=== PATIENT | female | born 1970 | race Caucasian/White ===

== ENCOUNTER 2020-11-02 16:58 | Emergency (ER) | payer OTHER, SELFPAY ==
--- NOTE | ~2020-11-02 | XR_ITS ---
EXAMINATION: XR hip LT 2V w AP pelvis DATE: 11/02/2020 17:52 INDICATION: Low back and left hip pain post fall TECHNIQUE: Anteroposterior view of the pelvis and anteroposterior and frog-leg lateral views of the l eft hip were obtained. COMPARISON: CT chest, abdomen and pelvis dated 05/28/2017 FINDINGS: Alignment is normal. No fracture. Mild osteoarthritis at the bilateral hip, sacroiliac and visualized lower lumbar facet joints. A pair of likely tubal ligation clips as well as multiple phleboliths pro ject over the pelvis. IMPRESSION: 1. Mild degenerative skeletal changes. No acute osseous abnormality. Reviewed, dictated and finalized at location A. CATTLE GRAZIER
[2020-11-02 17:18] VITALS: BP 144/87; PULSE 94; RESP 12; TEMP 36.3; O2SAT 100
--- NOTE | 2020-11-02 17:39 | ED.FALL ---
HPI - Fall General Chief Complaint: Fall Stated Complaint: fall Time Seen by Provider: 11/02/20 17:19 Source: patient Mode of arrival: ambulatory Limitations: no limitations History of Present Illness HPI Narrative: Patient is a 50-year-old female complaining of left hip pain accompanied by left low back pain, 6 out of 10, dull, nonradiating after she slipped and fall landing on her left side prior to arrival. Patient denies any head, neck, chest, abdomen or any other extremity pain/injury. Patient ambulatory after the fall. Related Data Allergies Allergy/AdvReac Type Severity Reaction Status Date / Time codeine Allergy Unknown Itching Verified 10/23/19 10:56 tramadol AdvReac Unknown N/V Verified 10/23/19 10:56 Review of Systems Review of Systems: All systems reviewed & are unremarkable except as noted in HPI and below Constitutional: Constitutional: Denies body ache(s), Denies chills, Denies excessive sweating, Denies fatigue, Denies fever(s), Denies headache(s), Denies lethargy, Denies malaise, Denies weakness and Denies weight loss Eyes: Eyes: Denies blurry vision, Denies change in vision and Denies loss of vision ENT: Denies dizziness, Denies ear discharge, Denies headache(s), Denies lip swelling, Denies epistaxis, Denies nasal congestion, Denies neck pain, Denies throat swelling and Denies tongue swelling Cardiovascular: Cardiovascular: Denies chest pain, Denies chest pain at rest, Denies chest pain with activity, Denies diaphoresis, Denies rapid heart rate, Denies edema, Denies irregular heart rhythm, Denies lightheadedness, Denies palpitations, Denies dyspnea and Denies dyspnea on exertion Respiratory: Respiratory: Denies chest congestion, Denies cough, Denies hemoptysis, Denies dyspnea and Denies dyspnea on exertion Gastrointestinal: Gastrointestinal: Denies abdominal pain, Denies melena, Denies hematochezia, Denies diarrhea, Denies nausea, Denies vomiting and Denies hematemesis Musculoskeletal: Musculoskeletal: Denies abnormal gait, Denies deformity, Denies joint swelling, Denies neck pain and Denies numbness Neurologic: Denies Abnormal speech present, Denies abnormal gait, Denies confusion, Denies dizziness, Denies headache(s), Denies focal weakness, Denies loss of vision, Denies numbness, Denies Other visual disturbances, Denies Sensory deficit (Neuro) and Denies weakness Psychiatric: Psychiatric: Denies confusion, Denies depression, Denies auditory hallucinations, Denies homicidal ideation and Denies suicidal ideation Endocrine: Endocrine: Denies cold intolerance, Denies excessive sweating, Denies fatigue, Denies heat intolerance and Denies palpitations Hematologic/Lymphatic: Hematologic/Lymphatic: Denies easy bleeding and Denies easy bruising Allergic/Immunologic: Allergic/Immunologic: Denies lip swelling, Denies throat swelling and Denies tongue swelling PMFSH Past Medical History Medical History Medial epicondylitis Pain of both elbows Family History Family History Other Diabetes mellitus Family history of alcoholism Family history of heart disease in male family member before age 55 Hypertension Social History Social History Smoking status: Former smoker Smoking end date: 09/23/98 Exam Const: General: cooperative, healthy appearing, comfortable, no acute distress, well developed, alert and awake; No confusion Orientation/consciousness: oriented to person, oriented to place, oriented to time, patient oriented x3 and No confusion Limitations: no limitations HENMT: Head: normal to inspection, normocephalic and atraumatic Ears: hearing grossly normal bilaterally, TM normal on the right and TM normal on the left General nose exam: Normal external nose present, Normal nares present and No nasal discharge present Face and sinus: nor
[2020-11-02] MEDS: KETOROLAC 30 MG/ML VIAL (*BKC) IM (18:52)
[2020-11-02 18:55] VITALS: BP 134/86; PULSE 88; RESP 15; O2SAT 100
== END 2020-11-02 18:57 | disposition home or self-care (01) ==
PROVIDERS: Emergency Provider Emergency Medicine; PCP Nurse Practitioner Family
DX: S70.02XA Contusion of left hip, initial encounter (principal); W01.0XXA Fall on same level from slipping, tripping and stumbling without subsequent striking against object, initial encounter
CPT/HCPCS: 73502; 96372; 99283; J1885

== ENCOUNTER 2020-11-26 10:10 | Emergency (ER) | payer OTHER, SELFPAY ==
--- NOTE | ~2020-11-26 | CT_ITS ---
EXAMINATION: CT abdomen pelvis w con EXAM DATE: 11/26/2020 12:08 INDICATION: Diarrhea, abdominal cramping and diverticulitis. TECHNIQUE: Spiral CT of the abdomen and pelvis was performed following intravenous injection of 100 m L Omnipaque 350. Axial, coronal and sagittal images were reviewed. The dose-length product (DLP) fo r this examination was 631.95 mGy-cm. The exposure was tailored according to patient size (auto mA e xposure control), and iterative reconstruction (ASIR) was used as additional dose reduction technique . Comparison is made to prior examination from 05/28/2017. FINDINGS: The liver, spleen, adrenal glands and pancreas are unremarkable. Gallbladder is unremarkab le. No biliary obstruction. Portal and splenic veins are patent. Kidneys enhance symmetrically. T here is no hydronephrosis. The uterus is anteverted and morphologically normal. The bladder is un remarkable. There is no retroperitoneal or pelvic lymphadenopathy. The appendix is normal. There are surgical changes from intact gastric bypass surgery. There is col onic fluid, correlate for diarrhea. There is mild scattered colonic diverticulosis. There is no derrek cent inflammatory change to suggest diverticulitis. No free intraperitoneal gas. The heart is norm al in size. There are no pericardial or pleural effusions. Left lower lobe granuloma. There are no osteoblastic or osteolytic lesions identified. IMPRESSION: 1. Colonic fluid, correlate for diarrhea. 2. Scattered colonic diverticulosis without adjacent inflammation. Reviewed, dictated and finalized at location A. NSING ENGINEER
[2020-11-26 10:14] VITALS: BP 138/91; PULSE 97; RESP 20; TEMP 36.4; O2SAT 100
[2020-11-26 10:18] VITALS: BP 138/91; PULSE 97; RESP 20; TEMP 36.4; O2SAT 100
[2020-11-26] MEDS: SODIUM CHLORIDE 0.9% IV 1,000 ML 999 ML IV CONT (10:42)
[2020-11-26] MEDS: METOCLOPRAMIDE HCL INJ 10 MG/2 ML VIAL IV PUSH (10:42)
[2020-11-26 10:49] VITALS: BP 121/85; BP 136/89; PULSE 70; PULSE 71
[2020-11-26 10:50] VITALS: BP 138/89; PULSE 79
[2020-11-26 10:52] LABS: Basophils Percent Auto 0.4 % (0.2-1.2); Eosinophils Absolute Auto 0.1 K/mm3 (0-0.3); Eosinophils Percent Auto 0.9 % (0-4.4); Hematocrit 46.3 % (37.0-47.0); Hemoglobin 15.5 g/dL (12.0-15.0); Immature Granulocyte Absolute 0.02 K/mm3 (0.00-0.031); Immature Granulocyte Percent A 0.2 % (0-0.5); Immature Platelet Fraction Pct 10.3 % (0.9-11.2); Lymphocytes Absolute Auto 1.25 K/mm3 (0.9-3.2); Lymphocytes Percent Auto 15.3 % (18.3-44.2); Mean Corpuscular HGB Conc 33.5 g/dl (32-36); Mean Corpuscular Hemoglobin 29.9 pg (26-34); Mean Corpuscular Volume 89.4 fl (80-100); Monocytes Absolute Auto 0.5 K/mm3 (0.1-0.6); Monocytes Percent Auto 6.5 % (2.6-8.5); Neutrophils Absolute Auto 6.3 K/mm3 (1.3-6.7); Neutrophils Percent Auto 76.7 % (45.5-73.1); Platelet Count Result 282 k/mm3 (150-375); Red Blood Count 5.18 M/mm3 (4.2-5.4); Red Cell Distribution Width 12.7 % (11.5-14.5); White Blood Count 8.2 K/mm3 (4.5-10.0)
[2020-11-26 11:01] LABS: Large Platelets Present; Platelet Estimate Adequate (Adequate)
[2020-11-26 11:03] LABS: Add Urine Microscopic? YES; Appearance Urine Cloudy (Clear); Bilirubin Urine Negative (Negative); Blood Urine 2+ (Negative); Color Urine Yellow (Yellow); Glucose Urine UA Negative (Negative); Ketones Urine 2+ mg/dL (Negative); Leukocyte Esterase Ur 1+ LEU/UL (Negative); Mucus Urine Heavy /lpf; Nitrate Urine Negative (Negative); Protein Urine 1+ mg/dL (Negative); RBC Urine 0-2 /hpf (0-2); Specific Grav Ur 1.026 (1.001-1.035); Squamous Epithelial Cell Urine Many /hpf (Few); Urobilinogen Urine Negative mg/dL (<2.0)
[2020-11-26 11:26] LABS: Alanine Aminotransferase 14 U/L (4-35); Alkaline Phosphatase 81 U/L (38-126); Anion Gap 9 mmol/L (8-16); Aspartate Amino Transferase 21 U/L (14-36); Bilirubin,Total 0.8 mg/dL (0.2-1.3); Blood Urea Nitrogen 12 mg/dL (7-17); Calcium 8.6 mg/dL (8.4-10.2); Carbon Dioxide 22 mmol/L (22-30); Chloride 108 mmol/L (98-107); Estimated CRCL calculation 100 ml/min; Estimated Glomerular Filt Rate > 60; Glucose 99 mg/dL (65-105); Lipase 213 U/L (23-300); Potassium 3.5 mmol/L (3.4-5.0); Sodium 139 mmol/L (137-145)
--- NOTE | 2020-11-26 11:32 | ED.GENADULT ---
HPI - General Adult General Chief complaint: Nausea/Vomiting/Diarrhea <Robert Michel PA-C - Last Filed: 11/26/20 14:11> Stated complaint: i think i have dehydration <Robert Michel PA-C - Last Filed: 11/26/20 14:11> Time Seen by Provider: 11/26/20 10:14 <Robert Michel PA-C - Last Filed: 11/26/20 14:11> Source: patient <SONDRA Hui Last Filed: 11/26/20 14:11> Mode of arrival: ambulatory <SONDRA Hui Last Filed: 11/26/20 14:11> Limitations: no limitations <SONDRA Hui Last Filed: 11/26/20 14:11> History of Present Illness HPI narrative: Patient with history of anxiety, diverticulitis, and back pain presents with chief complaint for concern of dehydration due to having multiple loose stools over the past 2 to 3 days that began after eating chicken salad that she left her work desk all day prior to eating. Patient reports nausea but denies vomiting. She reports that her stools have been loose but she denies seeing any blood or mucus. She denies fevers. She does report chills. She denies any issues urinating. She reports diffuse cramping to her upper abdomen. Patient reports she has a history of anxiety as well as diverticulitis. She denies any cough, shortness of breath, chest pain, vomiting. She has not taken any medications to alleviate her symptoms. Patient reports over the past few days she has only been able to eat crackers and drink a small amount of fluids, due to lack of appetite. She denies having recent abdominal pain or diarrhea after eating or drinking. Denies any recent travel. <SONDRA Hui Last Filed: 11/26/20 14:11> Related Data Home medications: Home Medications Medication Instructions Recorded Confirmed cyclobenzaprine 5 mg PO HS 11/26/20 11/26/20 lorazepam 1 mg PO BID 11/26/20 11/26/20 <SONDRA Hui Last Filed: 11/26/20 14:11> Allergies/adverse reactions: Allergies Allergy/AdvReac Type Severity Reaction Status Date / Time codeine Allergy Unknown Itching Verified 11/26/20 10:17 tramadol AdvReac Unknown N/V Verified 11/26/20 10:17 <Robert Michel PA-C - Last Filed: 11/26/20 14:11> Review of Systems Review of Systems: Narrative: CONSTITUTIONAL:Reports chills Denies fever or sweats. EYES: Denies visual changes, redness, or discharge. ENT: Denies rhinorrhea, congestion, sore throat, or otalgia. CARDIOVASCULAR: Denies chest pain, palpitations, or edema. RESPIRATORY: Denies cough or dyspnea. GASTROINTESTINAL: Reports abdominal cramping, nausea, and diarrhea Denies vomiting GENITOURINARY: Denies dysuria or hematuria. SKIN: Denies rash or itching. MUSCULOSKELETAL: Denies back pain, joint pain, or myalgia. NEUROLOGIC: Denies headache, numbness, dizziness, or weakness. PSYCHIATRIC: Denies anxiety or depression. <Robert Michel PA-C - Last Filed: 11/26/20 14:11> PMFSH Past Medical History Medical History: Medical History Medial epicondylitis Pain of both elbows <Robert Michel PA-C - Last Filed: 11/26/20 14:11> Family History Family History: Family History Other Diabetes mellitus Family history of alcoholism Family history of heart disease in male family member before age 55 Hypertension <Robert Michel PA-C - Last Filed: 11/26/20 14:11> Social History Social History: Social History Smoking status: Former smoker Smoking end date: 09/23/98 Gender identity (if verbalized by the patient): Female <Robert Michel PA-C - Last Filed: 11/26/20 14:11> Exam Narrative: Exam Narrative: GENERAL: Well-appearing, well-nourished, and in no acute distress. Appears tired but not toxic or diaphoretic. HEAD: Normocephalic, atraumatic. EYES: PERRLA and EOMI. NECK: Supple. No adenopathy or masses. RHEA
[2020-11-26 12:01] VITALS: BP 155/93; PULSE 76; RESP 20; O2SAT 98
[2020-11-26 12:25] VITALS: BP 134/74; PULSE 76; O2SAT 100
== END 2020-11-26 12:25 | disposition home or self-care (01) ==
PROVIDERS: Physician Assistant; Emergency Provider General Practice; PCP Nurse Practitioner Family
DX: R19.7 Diarrhea, unspecified (principal); F41.9 Anxiety disorder, unspecified; Z87.891 Personal history of nicotine dependence
CPT/HCPCS: 36415; 74177; 80053; 81001; 83690; 85025; 85055; 87045; 87046; 87086; 87088; 87427; 96361; 96374; 99284; J2765; J7030; Q9967

== ENCOUNTER 2021-07-21 22:03 | Emergency (ER) | payer OTHER, SELFPAY ==
[2021-07-21 22:07] VITALS: BP 159/95; PULSE 78; RESP 17; TEMP 35.8; O2SAT 100
[2021-07-21] MEDS: SODIUM CHLORIDE 0.9% IV 1,000 ML 999 ML IV CONT (22:38)
[2021-07-21] MEDS: KETOROLAC 30 MG/ML VIAL (*BKC) IV PUSH (22:39)
[2021-07-22] MEDS: diphenhydrAMINE HCl INJ 50 MG/ML VIAL 25 MG IV PUSH (00:42)
[2021-07-22] MEDS: METOCLOPRAMIDE HCL INJ 10 MG/2 ML VIAL IV PUSH (00:42)
--- NOTE | 2021-07-22 00:53 | ED.HA ---
HPI - Headache General Chief Complaint: Headache Stated Complaint: headache Time Seen by Provider: 07/21/21 22:06 History of Present Illness HPI Narrative: Patient is a 50-year-old female who presents ER with headache. Frontal and throbbing. No radiation. Denies fevers or chills or sweats. Endorses photophobia. No improvement with ibuprofen at home. Reports she gets these on occasion. No formal history of migraine. Reports she is under increased stress because the anniversary of her 's is coming up. Related Data Home Medications Medication Instructions Recorded Confirmed cyclobenzaprine 5 mg PO HS 11/26/20 06/13/21 lorazepam 1 mg PO BID 11/26/20 06/13/21 Allergies Allergy/AdvReac Type Severity Reaction Status Date / Time codeine Allergy Unknown Itching Verified 07/21/21 22:10 tramadol AdvReac Unknown N/V Verified 07/21/21 22:10 Review of Systems Review of Systems: All systems reviewed & are unremarkable except as noted in HPI and below Constitutional: Constitutional: Denies chills, Denies fever(s) and Denies weakness Eyes: Eyes: Denies change in vision and Reports photophobia ENT: Denies nasal congestion and Denies sore throat Gastrointestinal: Gastrointestinal: Denies nausea and Denies vomiting Neurologic: Denies dizziness, Reports headache(s), Denies focal weakness and Denies numbness PMFSH Past Medical History Medical History (Updated 07/22/21 @ 01:50 by Ibrahima Silva MD) Fracture of toe of left foot Medial epicondylitis Obesity Pain of both elbows Surgical History Surgical History (Updated 07/22/21 @ 01:04 by Ibrahima Silva MD) H/O gastric bypass Family History Family History Other Diabetes mellitus Family history of alcoholism Family history of heart disease in male family member before age 55 Hypertension Social History Social History Smoking status: Former smoker Smoking end date: 09/23/98 Alcohol intake: never Substance use: unknown 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 HEAD: Normocephalic, atraumatic. EYES: PERRLA and EOMI. NECK: Supple. CHEST: Clear to auscultation. No respiratory distress. HEART: Regular rate and rhythm. Normal peripheral pulses. ABDOMEN: Soft, nontender, nondistended. EXTREMITIES: Normal range of motion. No edema. SKIN: Warm, dry, no rash. NEURO: Alert and oriented x3. Course Course Emergency Course: Headache markedly improved with Reglan/Benadryl/Toradol. Discharge home. Vital Signs Vital signs: Vital Signs Temperature 96.4 F L 07/21/21 22:07 Pulse Rate 78 07/21/21 22:07 Respiratory Rate 17 07/21/21 22:07 Blood Pressure 159/95 H 07/21/21 22:07 Pulse Oximetry 100 07/21/21 22:07 Temperature 96.4 F L 07/21/21 22:07 Pulse Rate 78 07/21/21 22:07 Respiratory Rate 17 07/21/21 22:07 Blood Pressure 159/95 H 07/21/21 22:07 Pulse Oximetry 100 07/21/21 22:07 Discharge Plan Discharge Clinical Impression: Headache Patient Disposition: Home, Self-Care Condition: Stable Instructions: Acute Headache (ED) Additional Instructions: Return the ER if you have fever over 100.4 ?F, you cannot keep down food or water, you have chest pain or shortness of breath, you have additional concerns. Prescriptions: No Action lorazepam 1 mg tablet 1 mg PO BID RF: 0 cyclobenzaprine 5 mg tablet 5 mg PO HS RF: 0 metoclopramide HCl [Reglan] 10 mg tablet 10 mg PO Q6H PRN (Reason: nausea and vomiting) Qty: 14 RF: 0 Follow-up/Referrals: DEYVI,CRISSY POP [Primary Care Provider] - 1 Week
[2021-07-22 02:01] VITALS: BP 156/95; PULSE 60; RESP 17; O2SAT 100
== END 2021-07-22 02:04 | disposition home or self-care (01) ==
PROVIDERS: Emergency Provider Emergency Medicine; PCP Nurse Practitioner Family
DX: R51.9 Headache, unspecified (principal); E66.9 Obesity, unspecified; Z98.84 Bariatric surgery status; Z87.891 Personal history of nicotine dependence
CPT/HCPCS: 96361; 96374; 96375; 99284; J1200; J1885; J2765; J7030

== ENCOUNTER 2022-11-13 08:08 | Emergency (ER) | payer OTHER, SELFPAY ==
[2022-11-13] VITALS (20 sets, daily range): BP systolic 133–155; BP diastolic 89–101; PULSE 69–84; RESP 11–18; TEMP 36.4; O2SAT 100
--- NOTE | ~2022-11-13 | XR_ITS ---
EXAMINATION: XR chest 2V 11/13/2022 09:50 INDICATION: Chest pain. PROCEDURE: 2 view chest COMPARISON: Comparison to multiple prior studies sequentially, with oldest reviewed study dated 06/24. FINDINGS: The lungs are clear. The cardiomediastinal silhouette is within normal limits. There are no pleural effusions. There is no pneumothorax suspected. There is a calcified granuloma in the lef t lower lobe. IMPRESSION: 1: NO ACUTE CARDIOPULMONARY DISEASE. Reviewed, dictated and finalized at location L. GED CARE SPECIALIST
--- NOTE | 2022-11-13 08:56 | ECG_ITS ---
Measurements Intervals [place] Rate: 71 P: 21 OR: 185 QRS: 0 QRSD: 88 T: 28 QT: 384 QTc: 418 Interpretive Statements SINUS RHYTHM NONSPECIFIC ST ABNORMALITY ABNORMAL ECG NO PREVIOUS ECG AVAILABLE FOR COMPARISON Electronically Signed On 11-13-2022 14:13:30 [employer]NCE TRUCK INSTALLATION MECHANIC by Javier Verma M.D.
[2022-11-13 09:11] LABS: Basophils Percent Auto 0.9 % (0.2-1.2); Eosinophils Absolute Auto 0.2 K/mm3 (0-0.3); Hematocrit 36.5 % (37.0-47.0); Hemoglobin 11.5 g/dL (12.0-15.0); Immature Granulocyte Absolute 0.01 K/mm3 (0.00-0.031); Immature Granulocyte Percent A 0.2 % (0-0.5); Lymphocytes Absolute Auto 1.25 K/mm3 (0.9-3.2); Lymphocytes Percent Auto 29.4 % (18.3-44.2); Mean Corpuscular HGB Conc 31.5 g/dl (32-36); Mean Corpuscular Hemoglobin 28.3 pg (26-34); Mean Corpuscular Volume 89.9 fl (80-100); Mean Platelet Volume 9.7 fl (7.4-10.4); Monocytes Absolute Auto 0.3 K/mm3 (0.1-0.6); Monocytes Percent Auto 6.8 % (2.6-8.5); Neutrophils Absolute Auto 2.5 K/mm3 (1.3-6.7); Neutrophils Percent Auto 58.7 % (45.5-73.1); Platelet Count Result 226 k/mm3 (150-375); Red Blood Count 4.06 M/mm3 (4.2-5.4); Red Cell Distribution Width 13.7 % (11.5-14.5); White Blood Count 4.3 K/mm3 (4.5-10.0)
[2022-11-13 09:17] LABS: Alanine Aminotransferase 21 U/L (6-35); Albumin Level 4.2 g/dL (3.5-5.1); Alkaline Phosphatase 71 U/L (38-126); Anion Gap 4 mmol/L (8-16); Aspartate Amino Transferase 26 U/L (14-36); Bilirubin,Total 0.5 mg/dL (0.2-1.3); Blood Urea Nitrogen 15 mg/dL (7-17); Calcium 8.3 mg/dL (8.4-10.2); Carbon Dioxide 24 mmol/L (22-30); Chloride 109 mmol/L (98-107); Estimated CRCL calculation 95 ml/min; Estimated Glomerular Filt Rate > 60; Glucose 91 mg/dL (65-110); Potassium 4.1 mmol/L (3.4-5.0); Sodium 137 mmol/L (137-145)
[2022-11-13 09:18] LABS: Prothrombin Time 12.3 Seconds (11.1-14.7)
[2022-11-13 09:19] LABS: Partial Thromboplastin Time 23.2 SECONDS (22.3-36.8)
[2022-11-13 09:29] LABS: Troponin I < 0.012 ng/mL (0.000-0.034)
[2022-11-13] MEDS: KETOROLAC 30 MG/ML VIAL (*BKC) IV PUSH (09:34)
[2022-11-13] MEDS: diazePAM INJ (*CRX) 10 MG/2 ML SYRINGE 2 MG IV PUSH (09:34)
--- NOTE | 2022-11-13 09:44 | PC.NURSE ---
Pt off floor to radiology.
--- NOTE | 2022-11-13 11:10 | ED.GENADULT ---
HPI - General Adult General Chief complaint: Unspecified Stated complaint: back, shoulder and neck pain Time Seen by Provider: 11/13/22 08:28 History of Present Illness HPI narrative: Patient is a 52-year-old female who presents ER with concerns of back/shoulder/neck pain. Began this morning. No radiation to the chest. Patient did become anxious and was concerned she may at home. She reports she fell 2 days ago onto her buttock. She did reach out and try to grab herself to prevent falling. She may have adelina herself. No sudden onset pain of the back/neck/shoulder at that time. Patient has no numbness or tingling. She is taking no pain medication. No exertional dyspnea or chest discomfort. Related Data Home Medications Medication Instructions Recorded Confirmed cyclobenzaprine 5 mg tablet 5 mg PO HS 11/26/20 06/13/21 lorazepam 1 mg tablet 1 mg PO BID 11/26/20 06/13/21 Allergies Allergy/AdvReac Type Severity Reaction Status Date / Time tramadol AdvReac Unknown N/V Verified 11/13/22 08:25 Review of Systems Review of Systems: All systems reviewed & are unremarkable except as noted in HPI and below Constitutional: Constitutional: Reports body ache(s) and Denies fever(s) ENT: Denies nasal congestion and Denies sore throat Cardiovascular: Cardiovascular: Denies chest pain and Denies chest pain with activity Respiratory: Respiratory: Denies cough and Denies dyspnea Musculoskeletal: Musculoskeletal: Reports myalgias, Reports arthralgias, Denies muscle cramps and Reports neck pain PMFSH Past Medical History Medical History (Updated 11/13/22 @ 12:50 by Ibrahima Silva MD) Fracture of toe of left foot Medial epicondylitis Obesity Pain of both elbows Surgical History Surgical History (Updated 07/22/21 @ 01:04 by Ibrahima Silva MD) H/O gastric bypass Family History Family History Other Diabetes mellitus Family history of alcoholism Family history of heart disease in male family member before age 55 Hypertension Social History Social History Smoking status: Former smoker Smoking end date: 09/23/98 Alcohol intake: never Substance use: unknown Living arrangements: with family 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 HEAD: Normocephalic, atraumatic. EYES: PERRL and EOMI. ENT: Mucous membranes moist. NECK: Supple. Left trapezius discomfort. CHEST: Clear to auscultation. No respiratory distress. HEART: Regular rate and rhythm. Normal peripheral pulses. Back: Tender palpation over the left rhomboid muscle with palpable knots. No midline tenderness of T/L-spine EXTREMITIES: Normal range of motion. No edema. NEURO: Alert and oriented x3. PSYCH: Normal mood and affect. Course Course Emergency Course: Symptoms are noncardiac in nature. They are related to muscle strain from her fall yesterday. Patient informed of results. Feels improved with Toradol and Valium. Discharge home. Vital Signs Vital signs: Vital Signs Temperature 97.5 F L 11/13/22 08:14 Pulse Rate 81 11/13/22 08:14 Respiratory Rate 18 11/13/22 08:14 Blood Pressure 155/97 H 11/13/22 08:14 Pulse Oximetry 100 11/13/22 08:14 Oxygen Delivery Room Air 11/13/22 08:14 Temperature 97.5 F L 11/13/22 08:14 Pulse Rate 72 11/13/22 11:16 Respiratory Rate 14 11/13/22 11:16 Blood Pressure 152/101 H 11/13/22 11:16 Pulse Oximetry 100 11/13/22 08:14 Oxygen Delivery Room Air 11/13/22 08:14 Medical Decision Making Vital Signs Vital Signs: Vital Signs Temperature 97.5 F L 11/13/22 08:14 Pulse Rate 81 11/13/22 08:14 Respiratory Rate 18 11/13/22 08:14 Blood Pressure 155/97
--- NOTE | 2022-11-13 11:23 | PC.NURSE ---
1st encounter, pt report received from Anne RN, pt resting comfortably on stretcher, no acute distress or SOB, airway patent, breathing even/unlabored. pt A&Ox4. pt has no complaints at this time. pt awaiting re-eval from and mona.
== END 2022-11-13 13:03 | disposition home or self-care (01) ==
PROVIDERS: Emergency Provider Emergency Medicine; PCP Nurse Practitioner Family
DX: S46.912A Strain of unspecified muscle, fascia and tendon at shoulder and upper arm level, left arm, initial encounter (principal); E66.9 Obesity, unspecified; Z68.28 Body mass index [BMI] 28.0-28.9, adult; Z98.84 Bariatric surgery status; Z87.891 Personal history of nicotine dependence; R94.31 Abnormal electrocardiogram [ECG] [EKG]; W19.XXXA Unspecified fall, initial encounter
CPT/HCPCS: 36415; 71046; 80053; 84484; 85025; 85610; 85730; 93005; 96374; 96375; 99284; J1885; J3360

== ENCOUNTER 2023-12-07 09:57 | Emergency (ER) | payer OTHER, SELFPAY ==
[2023-12-07 09:58] VITALS: BP 174/96; PULSE 78; RESP 18; TEMP 36.6; O2SAT 100
--- NOTE | 2023-12-07 10:25 | ED.HA ---
HPI - Headache General Chief Complaint: Headache Stated Complaint: headache Time Seen by Provider: 12/07/23 10:07 History of Present Illness HPI Narrative: 53-year-old female with reported history of headaches presents to the emergency department for headache x1 day. Patient states the headache is frontal and is at times her occiput. States she has headaches this is how they normally present. She has tried ibuprofen at home without relief. States in the past she has come to the emergency department for headaches with improvement with IM Toradol. She she reports associated nausea, emesis and photophobia. Denies head injury trauma, vision changes, focal numbness or weakness, nuchal rigidity or fevers. States all she wants today is IM Toradol and a COVID test. Related Data Home Medications Medication Instructions Recorded Confirmed cyclobenzaprine 5 mg tablet 5 mg PO HS 11/26/20 06/13/21 lorazepam 1 mg tablet 1 mg PO BID 11/26/20 06/13/21 Allergies Allergy/AdvReac Type Severity Reaction Status Date / Time tramadol AdvReac Unknown N/V Verified 12/07/23 10:04 Review of Systems Review of Systems: CONSTITUTIONAL: Denies fever, chills, or sweats. EYES: Denies visual changes, redness, or discharge. ENT: Denies rhinorrhea, congestion, sore throat, or otalgia. CARDIOVASCULAR: Denies chest pain, palpitations, or edema. RESPIRATORY: Denies cough or dyspnea. GASTROINTESTINAL: Denies abdominal pain, nausea, vomiting, or diarrhea. GENITOURINARY: Denies dysuria or hematuria. SKIN: Denies rash or itching. MUSCULOSKELETAL: Denies back pain, joint pain, or myalgia. NEUROLOGIC: See HPI PSYCHIATRIC: Denies anxiety or depression. 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 HEAD: Normocephalic, atraumatic. EYES: PERRLA and EOMI. ENT: Nares clear, no rhinorrhea or epistaxis. Mucous membranes moist. NECK: Supple. CHEST: Clear to auscultation. No respiratory distress. HEART: Regular rate and rhythm. No murmur heard. Normal peripheral pulses. EXTREMITIES: Normal range of motion. No edema. SKIN: Warm, dry, no rash. NEURO: No focal deficits. Alert and oriented x3. Cranial nerves 2-12 intact. Strength 5/5 in BUE and BLE. Sensation intact throughout. Course Vital Signs Vital signs: Vital Signs Temperature 97.8 F 12/07/23 09:58 Pulse Rate 78 12/07/23 09:58 Respiratory Rate 18 12/07/23 09:58 Blood Pressure 174/96 H 12/07/23 09:58 Pulse Oximetry 100 12/07/23 09:58 Oxygen Delivery Room Air 12/07/23 09:58 Temperature 97.8 F 12/07/23 09:58 Pulse Rate 71 12/07/23 11:58 Respiratory Rate 15 12/07/23 11:58 Blood Pressure 141/88 H 12/07/23 11:58 Pulse Oximetry 100 12/07/23 11:58 Oxygen Delivery Room Air 12/07/23 09:58 MDM - Headache MDM Narrative Medical decision making narrative: 53-year-old female presents to emergency department for headache. This headache is like her others, she is only requesting IM Toradol. She is neurovascularly intact nontoxic a
[2023-12-07] MEDS: METOCLOPRAMIDE HCL 10 MG TABLET PO (10:31)
[2023-12-07 10:33] VITALS: BP 158/99; PULSE 71; RESP 14; O2SAT 100
[2023-12-07] MEDS: KETOROLAC 30 MG/ML VIAL (*BKC) IM ×2 (10:33→11:56)
[2023-12-07 11:58] VITALS: BP 141/88; PULSE 71; RESP 15; O2SAT 100
[2023-12-07 13:31] LABS: Influenza A QL RT-PCR Negative (Negative); Influenza B QL RT-PCR Negative (Negative); RSV RNA, RT-PCR Negative (Negative); SARS-CoV-2 RNA PCR Negative (Negative)
[2023-12-07 13:57] VITALS: BP 154/99; PULSE 71; RESP 15; TEMP 36.4; O2SAT 100
== END 2023-12-07 14:00 | disposition home or self-care (01) ==
PROVIDERS: Emergency Provider Physician Assistant; PCP Nurse Practitioner Family
DX: G44.201 Tension-type headache, unspecified, intractable (principal); E66.9 Obesity, unspecified; Z68.31 Body mass index [BMI] 31.0-31.9, adult; Z98.84 Bariatric surgery status; Z87.891 Personal history of nicotine dependence
CPT/HCPCS: 87637; 96372; 99284; A9270; J1885

== ENCOUNTER 2024-09-12 07:15 | Emergency (ER) | payer OTHER, SELFPAY ==
--- NOTE | ~2024-09-12 | XR_ITS ---
EXAMINATION: XR lumbar spine 2-3V DATE: 09/12/2024 08:09 INDICATION: Low back pain. Fall. TECHNIQUE: 3 views of lumbar spine on 4 radiographs were obtained. COMPARISON: CT abdomen and pelvis 11/26/2020 FINDINGS: There is 7 degrees dextrocurvature of lumbar spine. Vertebral body heights are normal. Ther e is mildly decreased disc height from L2-L3 through L4-L5. There is multilevel severe facet joint os teoarthritis. IMPRESSION: 1. Mild lumbar spondylosis. Reviewed, dictated and finalized at location A. YSIS SOCIAL WORKER IMPRESSION: 1. Mild lumbar spondylosis.
[2024-09-12 07:18] VITALS: BP 151/105; PULSE 86; RESP 15; TEMP 36.4; O2SAT 100
[2024-09-12] MEDS: KETOROLAC 30 MG/ML VIAL (*BKC) IM (08:09)
--- NOTE | 2024-09-12 08:59 | ED.GENADULT ---
HPI - General Adult General Chief complaint: Fall Stated complaint: fall out of bed, jaw pain low back pain Time Seen by Provider: 09/12/24 07:26 History of Present Illness HPI narrative: Patient is a 54-year-old female who presents ER with low back pain. Had a trip and fall yesterday evening where she fell forward striking her chin but then extended her back. Had pain increasing throughout the evening. No numbness or weakness to the legs. No fevers or chills. Her jaws sore but her teeth aligned she has no bleeding. Related Data Home Medications ?Medication ?Instructions ?Recorded ?Confirmed ?Last Taken ?Type cyclobenzaprine 5 mg tablet 5 mg PO HS 11/26/20 06/13/21 Unknown History lorazepam 1 mg tablet 1 mg PO BID 11/26/20 06/13/21 Unknown History Allergies Allergy/AdvReac Type Severity Reaction Status Date / Time tramadol AdvReac Unknown N/V Verified 09/12/24 07:17 Review of Systems Constitutional: Constitutional: Reports no additional constitutional complaints Musculoskeletal: Musculoskeletal: Reports back pain, Denies arthralgias and Denies joint swelling Integumentary/Breasts: Skin/Breast: Reports system reviewed and no additional complaints, except as docu Neurologic: Reports system reviewed and no additional complaints, except as documented PMFSH Past Medical History Medical History Fracture of toe of left foot Medial epicondylitis Obesity Pain of both elbows Surgical History Surgical History H/O gastric bypass Family History Family History Other Diabetes mellitus Family history of alcoholism Family history of heart disease in male family member before age 55 Hypertension Social History Social History Smoking status: Former smoker Smoking end date: 09/23/98 Alcohol intake: never Substance use: unknown Living arrangements: with family 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 HEAD: Normocephalic, atraumatic. ENT: Mucous membranes moist. NO facial trauma CHEST: Clear to auscultation. No respiratory distress. HEART: Regular rate and rhythm. Normal peripheral pulses. BACK: No midline tenderness of the T-Spine, mild TTP L4 midline. No bruising/swelling. EXTREMITIES: Normal range of motion. No edema. SKIN: Warm, dry, no rash. NEURO: Alert and oriented x3. PSYCH: Normal mood and affect. Course Course Emergency Course: No fracture. Toradol for pain. Discussed conservative treatment for home. Vital Signs Vital signs: Vital Signs Temperature 97.6 F 09/12/24 07:18 Pulse Rate 86 09/12/24 07:18 Respiratory Rate 15 09/12/24 07:18 Blood Pressure 151/105 H 09/12/24 07:18 Pulse Oximetry 100 09/12/24 07:18 Oxygen Delivery Room Air 09/12/24 07:18 Temperature 97.6 F 09/12/24 07:18 Pulse Rate 86 09/12/24 07:18 Respiratory Rate 15 09/12/24 07:18 Blood Pressure 151/105 H 09/12/24 07:18 Pulse Oximetry 100 09/12/24 07:18 Oxygen Delivery Room Air 09/12/24 07:18 Medical Decision Making Vital Signs Vital Signs: Vital Signs Temperature 97.6 F 09/12/24 07:18 Pulse Rate 86 09/12/24 07:18 Respiratory Rate 15 09/12/24 07:18 Blood Pressure 151/105 H 09/12/24 07:18 Pulse Oximetry 100 09/12/24 07:18 Oxygen Delivery Room Air 09/12/24 07:18 Temperature 97.6 F 09/12/24 07:18 Pulse Rate 86 09/12/24 07:18 Respiratory Rate 15 09/12/24 07:18 Blood Pressure 151/105 H 09/12/24 07:18 Pulse Oximetry 100 09/12/24 07:18 Oxygen Delivery Room Air 09/12/24 07:18 Imaging Data Radiologist's impression: ITS Impressions Lumbar Spine X-Ray 09/12/24 08:10 IMPRESSION: 1. Mild lumbar spondylosis. Discharge Plan Discharge Clinical Impression: Low back strain Patient Disposition: Home, Self-Care Condition: Stable Instructions: Low Back Strain (ED) Additional Instructions: Please return to the emergency department if you develop severe pain that is not controlled by pain medications or if you are unable to walk because of pain or weakness. Return to the emergency department immediately if you develop fevers, loss of bowel or bladder control (dribbling of urine or having accidents you wouldn't normally have), inability to urinate, numbness of your genital or anal area, or weakness/numbness of your legs or arms as these could all be signs of a serious medical emergency. Patient Language: [place] Citizen Prescriptions: New cyclobenzaprine 10 mg tablet 10 mg PO TID PRN (Reason: muscle spasm) Qty: 20 0RF naproxen 375 mg tablet 375 mg PO BID Qty: 14 0RF No Action naproxen 375 mg tablet 375 mg PO BID Qty: 14 0RF lorazepam 1 mg tablet 1 mg PO BID cyclobenzaprine 5 mg tablet 5 mg PO HS metoclopramide HCl [Reglan] 10 mg tablet 10 mg PO Q6H PRN (Reason: nausea and vomiting) Qty: 14 0RF Follow-up/Referrals: DEYVI,CRISSY POP [Primary Care Provider] - 1 Week Stand Alone Forms: Work/School Release IP
[2024-09-12 09:14] VITALS: BP 121/79; PULSE 68; RESP 17; O2SAT 100
--- OUTSIDE RECORDS SUMMARY | 2024-09-19 04:56 | XMS_ITS | Continuity of Care Document ---
Author Organization [id number] - [facility] Address [address] [place] [address] Phone Care Team Providers Care Paper Stripper Name Role Phone Locum, Locum Unavailable Unavailable Procedures Procedure Date OFFICE/OUTPT EM EST EXP PROB FOCUS/LOW 1 5 MINS UPPER GI ENDO W/SUBMUCOSAL INJECTION Oct OFFICE/OUTPT EM EST EXP PROB FOCUS/LOW 1 5 MINS UPPER GI ENDO W/SUBMUCOSAL INJECTION Aug POSTOP FOLLOW UP VISIT RELATED TO ORIGIN AL PX POSTOP FOLLOW UP VISIT RELATED TO ORIGIN AL PX POSTOP FOLLOW UP VISIT RELATED TO ORIGIN AL PX LAPAROSCOPY SURG CHOLECYSTECTOMY 2014 UPPER GI ENDO DX W/WO COLLECTION SPECIME N OFFICE/OUTPT EM EST EXP PROB FOCUS/LOW 1 5 MINS Advance Directives Directive Yes / No Effective Date File Name No Information Encounters Encounter Description Practice Location Reason(s) For Visit Diagnoses Date Provider Providers Copied on Encounter OFFICE/OUTPT EM EST EXP PROB FOCUS/LOW 15 MINS [id number] - [facility], [address] [facility] [address], [place], [address], tel:[phone] [facility] No Information Locum Locum. . Referring Provider: Joy Wyatt, [facility] [facility] [address], [place], [address] . tel:[phone] [id number] - [facility], [address] [facility] [address], [place], [address], [place] tel:[phone] [facility] No Information Ron Lee. [facility], [address], [place], [place], [id number]. tel:[phone] Referring Provider: Lee Cintron, [facility] [address], [place], [address] . tel:[phone] OFFICE/OUTPT EM EST EXP PROB FOCUS/LOW 15 MINS [id number] - [facility],[employer], [address] [facility] [address], [place], [place], [facility], [place] tel:[phone] [facility] No Information Guillermo Castillo. [address] , [address], [place], [place], [id number], [place]. tel:[phone] Referring Provider: Anna Reilly, [address], [place], [address] . tel:[phone] [id number] - [facility],[employer], [address] [facility] [address], [place], [address], [place] tel:[phone] [facility] No Information Ron Lee. [facility], [address], [place], [place], [id number]. tel:[phone] Referring Provider: Lee Cintron, [facility] [address], [place], [address] . tel:[phone] [id number] - [facility] [employer] [address] [facility] [address], [place], [address], [place] tel:[phone] [facility] No Information Guillermo Castillo. [address] , [address], [place], [place], [id number], [place]. tel:[phone] Referring Provider: Anna Reilly, [address], [place], [address] . tel:[phone] [id number] - [facility], [address] [facility] [address], [place], [address], [place] tel:[phone] [facility] No Information Guillermo Castillo. [address] , [address], [place], [place], [id number], [place]. tel:[phone] Referring Provider: Anna Reilly, [address], [place], [address] . tel:[phone] [id number] - [facility], [address] [facility] [address], [place], [address], tel:[phone] [facility] No Information Guillermo Castillo. [address], [place], [place], [id number], [place]. tel:[phone] Referring Provider: Anna Reilly, [address], [place], [address] . tel:[phone] [id number] - [facility], [address] [facility] [address], [place], [address], [place] tel:[phone] P[facility] No Information Ron Howard. [facility], [address] [facility] [address], [place], [place], [id number]. tel:[phone] Referring Provider: Lee Cintron, [facility] [address] [facility] [address], [place], [address] . tel:[phone] [id number] - [facility], [address] [facility] [address], [place], [address], [place] tel:[phone] [facility] No Information Ron Howard. [facility], [address] [facility] [address], [place], [place], [id number]. tel:[phone] Referring Provider: Lee Cintron, [facility] [address], [place], [address] . tel:[phone] OFFICE/OUTPT EM EST EXP PROB FOCUS/LOW 15 MINS [id number] - [facility], [address], [place], [address], [place] tel:[phone] [facility] No Information Guillermo Castillo. [address], [address], [place], [place], [address], [place]. tel:[phone] Referring Provider: Anna Reilly, [address], [place], [address] . tel:[phone] Family History Family Member Type Diagnosis Age At Onset No Information Payers Payer name Insurance type Covered libertarian ID Kvng miguel(s) [facility] - [place] [id number] [facility] CI [id number] Social History Type Description Quantity Date Captured Comments Sex Female Smoking Status No Information Chief Complaint And Reason For Visit No Information Reason For Referral Reason For Referral No Information History Of Present Illness Encounter Date Complaint History Of Prese nt Illness No Information Functional Status Date Functional Assessmen t No Information Instructions Date Instruction Additional Infor mation No Information Assessments Type Assessment Date No Information Patient Care Teams Name Effective Dates (start - stop) Status Members No Information
--- OUTSIDE RECORDS SUMMARY | 2024-09-19 04:56 | XMS_ITS | Referral Summary ---
Author Organization [facility] Address [address] [place] [address] Care Team Providers Care Radiology Interventional Physician Name Role Phone Ana Boyer NP Primary Care Provider [phone] Allergies Active Allergy Reactions Criticality Noted Date Comments Codeine Itching Low Liquid codeine, codeine #3 caused no itching Tramadol Vomiting Low Medications LORazepam (ATIVAN) 1 mg tabletIndications: anxiety Take 1 mg by mouth nightly PRN 2 03/22/20 22 Active cyclobenzaprine (FLEXERIL) 10 mg tablet Take 10 mg by mouth nightly PRN Active busPIRone (BUSPAR) 5 mg tabletIndications: Generalized Anxiety Disorder Take 5 mg by mouth 3 (three) times a day Nightly PRN Active multivitamin capsule Take 1 capsule by mouth daily Active cholecalciferol (VITAMIN D-3) 5,000 unit tabletIndications: gastric bypass Take 5,000 Units by mouth daily Active cyanocobalamin (Vitamin B-12) 1,000 mcg tabletIndications: Prevention of Vitamin B12 Deficiency,gastric bypass Take 1,000 mcg by mouth daily Active CALCIUM CITRATE ORALIndications:ga stric bypass Take 1,200 mg by mouth daily Active cetirizine (ZyrTEC) 10 mg tablet Take 10 mg by mouth daily Active pseudoephedrine (SUDAFED) 30 mg tabletIndications: Nasal Congestion Take 30 mg by mouth every 6 (six) hours as needed for congestion Active oxyCODONE-acetamin ophen (PERCOCET) 5-325 mg per tabletIndications: Pain Take 1 tablet by mouth every 4 (four) hours as needed for pain 35 tablet 04/19/20 22 Active cefadroxil (DURICEF) 500 mg capsule Take 1 capsule (500 mg total) by mouth 2 (two) times a day 14 capsule 04/19/20 22 Active docusate sodium (COLACE) 100 mg capsuleIndications :constipation Take 1 capsule (100 mg total) by mouth 2 (two) times a day as needed for constipation 20 capsule 04/19/20 22 Active ondansetron ODT (ZOFRAN-ODT) 4 mg disintegrating tabletIndications: Prevention of Post-Operative Nausea and Vomiting Take 1 tablet (4 mg total) by mouth every 8 (eight) hours as needed for nausea or vomiting 20 tablet 1 04/19/20 22 Active Active Problems Problem Noted Date Diagnosed Date History of alcohol abuse 01/05/2015 Overview (12/28/2016): History of alcohol abuse Vasovagal syncope 01/05/2015 Overview (12/28/2016): Vasovagal syncope Adiposity 01/05/2015 Overview (12/28/2016): Obesity Palpitations 01/05/2015 Overview (12/28/2016): Palpitations Social History Tobacco Use Types Packs/Day Years Used Date Smoking Tobacco: Former Cigarettes Q uit: 2020 Smokeless Tobacco: Never Alcohol Use Standard Drinks/Week Comments No 0 (1 standard drink = 0.6 oz pur e alcohol) AUDIT-C Answer Date Recorded Q1: How often do you have a drink containing alc ohol? 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 Gender Identity Not on file Sexual Orientation Not on file Last Filed Vital Signs Vital Sign Reading Time Taken Comments Blood Pressure 113/73 04/19/2022 4:10 PM CDT Pulse 70 04/19/2022 4:10 PM CDT Temperature 36.7 ??C (98 ??F) 04/19/2022 4:10 PM CDT Respiratory Rate 16 04/19/2022 4:10 PM CDT Oxygen Saturation 98% 04/19/2022 4:10 PM CDT Inhaled Oxygen Concentration - - Weight 74.9 kg (165 lb 1.6 oz) 04/19/2022 6:15 A M CDT Height 165.1 cm (5' 5 ) 04/19/2022 6:15 AM CDT Body Mass Index 27.47 04/19/2022 6:15 AM CDT Plan of Treatment Not on file Care Teams Radiology Interventional Physician Relationship Specialty Start Date End Date Ana Boyer NP [address] [place] [address] PCP - General Nurse Practitioner 04/19/22
--- OUTSIDE RECORDS SUMMARY | 2024-09-19 04:56 | XMS_ITS | Continuity of Care Document ---
Author Organization [facility] Address [address] [facility] [address] [place] [address] Phone Care Team Providers Care Autocad Detailer Name Role Phone No Information Unavailable Unavailable Procedures Procedure Date PT Evaluation Moderate Complexity Therapeutic Activities Neuromuscular Re-Ed Advance Directives Directive Yes / No Effective Date File Name No Information Encounters Encounter Description Practice Location Reason(s) For Visit Diagnoses Date Provider Providers Copied on Encounter [facility], [address], [id number], tel:[phone] No Information 3 No Information [facility] [address], [id number], tel:[phone] [place] No Information 3 Umair Damon Referring Provider: Ana Boyer, [address] [place], [address]. tel:[phone] Family History Family Member Type Diagnosis Age At Onset No Information Payers Payer name Insurance type Covered green party ID Authoriza tion(s) No Information Social History Type Description Quantity Date Captured Comments Sex Female Smoking Status No Information Chief Complaint And Reason For Visit No Information Reason For Referral Reason For Referral No Information History Of Present Illness Encounter Date Complaint History Of Prese nt Illness No Information Functional Status Date Functional Assessmen t No Information Instructions Date Instruction Additional Infor mation Dietary needs education Related to Overweight Dietary needs education Related to Overweight Dietary needs education Related to Overweight Prescribed activity/exercise edu cation Related to Overweight Prescribed activity/exercise edu cation Related to Overweight Prescribed activity/exercise edu cation Related to Overweight Assessments Type Assessment Date No Information Patient Care Teams Name Effective Dates (start - stop) Status Members No Information
--- OUTSIDE RECORDS SUMMARY | 2024-09-19 04:56 | XMS_ITS | Clinical Summary ---
Author Organization [facility] Address [address] [place] [address] Care Team Providers Care Nuclear Auxiliary Operator Name Role Phone Ana Boyer NP Primary Care Provider + [phone] Allergies Active Allergy Reactions Criticality Noted Date [...] (12/28/2016): Obesity Palpitations 01/05/2015 Overview (12/28/2016): Palpitations Surgical History Surgery Date Site/Laterality Comments TONSILLECTOMY Tonsillectomy URETER SURGERY 09/23/1975 - 09/22/1976 ORAL SURGERY oropharyngeal surgery for DANIELLE, unknown name of procedure SINUS SURGERY CHOLECYSTECTOMY 09/23/2015 - 09/22/2016 Medical History Medical History Date Comments Hx Other Medical tubal ligation Hx Other Medical gastric bypass surgery in 2009 Vertigo 04/12/2022 occasional Family History Medical History Relation Name Comments Other Brother 2 Alive and well; Other Father 2 Alive and well; Other Mother 2 Alive and well; Relation Name Status Comments Brother 1 Alive Brother 2 Father 1 Alive Father 2 Mother 1 Alive Mother 2 Social History Tobacco Use Types Packs/Day Years [...] on file 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 Gender Identity Not on file Sexual Orientation Not on file Obstetrics History Last Filed Vital Signs Vital Sign Reading [...] 04/19/2022 6:15 AM CDT Plan of Treatment Health Maintenance Due Date Last Done Comments Breast Cancer Screening-Mammogram 1969 Cervical Cancer Screening 1969 Colon Cancer Screening-Colonoscopy 1969 Depression Screening 1969 Hepatitis C Screening 1969 Hepatitis B Screening 1987 Regular Well Visit/Exam 18-64 1987 Zoster Vaccine (1 of 2) 2019 DTaP/Tdap/Td Vaccine (2 - Td or Tdap) 10/09/2020 10/09/2010 Covid-19 Vaccine ( season) 2024 03/20/2022, 06/02/2021, 10/23/2020, Additional history exists Influenza Vaccine (#1) 2024 Pneumococcal vaccine <65 Aged Out No longer eligible based on patient's age to complete this topic Care Teams Nuclear Auxiliary Operator Relationship Specialty Start Date End Date Ana Boyer NP [address] [place] [address] PCP - General Nurse Practitioner 04/19/22
--- OUTSIDE RECORDS SUMMARY | 2024-09-19 04:57 | XMS_ITS | Encounter Summary ---
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 Social History Tobacco Use Types Packs/Day Years Used Date Smoking Tobacco: Former Alcohol Use Standard Drinks/Week Comments No 0 (1 standard drink = 0.6 oz pur e alcohol) Comments Unknown Sex and Gender Information Value Date Recorded Sex Assigned at Not on file 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 Gender Identity Not on file Sexual Orientation Not on file documented as of this encounter Last Filed Vital Signs Vital Sign Reading Time Taken Comments Blood Pressure 129/93 05/25/2017 8:28 PM CDT Pulse 78 05/25/2017 8:28 PM CDT Temperature 37.1 ??C (98.8 ??F) 05/25/2017 8:28 PM CD T Respiratory Rate - - Oxygen Saturation 100% 05/25/2017 8:28 PM CDT Inhaled Oxygen Concentration - - Weight 93.4 kg (206 lb) 05/25/2017 8:28 PM CDT Height 165.1 cm (5' 5 ) 05/25/2017 8:28 PM CDT Body Mass Index 34.28 05/25/2017 8:28 PM CDT documented in this encounter Plan of Treatment Not on file documented as of this encounter Procedures Procedure Name Priority Date/Time Associated Diagnosis Comments XR ELBOW RIGHT 2 OR MORE VIEWS Routine 05/25/2017 12:00 AM CDT documented in this encounter Results * XR Elbow Right 2 Views (05/25/2017 12:00 AM CDT) Anatomical Region Laterality Modality Upper Extremities, Elbow Right Radiogr aphic Imaging 05/25/2017 Impressions 05/25/2017 8:58 PM CDT Negative exam. THIS IS AN ELECTRONICALLY VERIFIED REPORT 05/25/2017 8:55 PM: ??Markos Quevedo M.D. ?? Markos Quevedo M.D. RW:tammi 08:55 PM 08:55 PM JOE [EOD] Narrative 05/25/2017 8:58 PM CDT EXAMINATION: RIGHT ELBOW 2 VIEW INDICATION: Right elbow pain medially after carrying injury COMPARISON: None Available. FINDINGS: No fracture. ??No joint effusion. ??No periosteal reaction. ??No erosion. Procedure Note Provider, MD Prabhjot - 02/07/2021 EXAMINATION: RIGHT ELBOW 2 VIEW INDICATION: Right elbow pain medially after carrying injury COMPARISON: None Available. FINDINGS: No fracture. No joint effusion. No periosteal reaction. No erosion. IMPRESSION: Negative exam. THIS IS AN ELECTRONICALLY VERIFIED REPORT 05/25/2017 8:55 PM: Markos Quevedo M.D. Markos Quevedo M.D. 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
--- OUTSIDE RECORDS SUMMARY | 2024-09-19 04:57 | XMS_ITS | Encounter Summary ---
Author Organization [facility] Healthcare Address [address] [place] [address] Care Team Providers Care Maintenance Repairer Name Role Phone Danial Murillo MD Primary Care Provider [phone] Encounter Details Date Type Department Care Team (Latest Contact Info) Description 02/02/2016 9:33 AM CDT - 02/02/2016 12:33 PM CDT Hospital Encounter [facility] ER Tony Bowman MD [address] [facility] [address] Syncope and collapse; Bariatric surgery status; Acquired absence of other specified parts of digestive tract Social History Tobacco Use Types Packs/Day Years Used Date Smoking Tobacco: Former Alcohol Use Standard Drinks/Week Comments No 0 (1 standard drink = 0.6 oz pur e alcohol) Comments Unknown Sex and Gender Information Value Date Recorded Sex Assigned at Not on file 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 Gender Identity Not on file Sexual Orientation Not on file documented as of this encounter Last Filed Vital Signs Vital Sign Reading Time Taken Comments Blood Pressure 158/97 02/02/2016 9:35 AM CDT Pulse 69 02/02/2016 9:35 AM CDT Temperature 36.7 ??C (98 ??F) 02/02/2016 9:35 AM CDT Respiratory Rate - - Oxygen Saturation 100% 02/02/2016 9:35 AM CDT Inhaled Oxygen Concentration - - Weight 97.5 kg (215 lb) 02/02/2016 9:35 AM CDT Height 165.1 cm (5' 5 ) 02/02/2016 9:35 AM CDT Body Mass Index 35.78 02/02/2016 9:35 AM CDT documented in this encounter Plan of Treatment Not on file documented as of this encounter Procedures Procedure Name Priority Date/Time Associated Diagnosis Comments URINALYSIS Routine 02/02/2016 11:09 AM CDT TNI WITH LIPID PANEL Routine 02/02/2016 10:13 AM CDT CBC WITH AUTO DIFFERENTIAL Routine 02/02/2016 10:13 AM CDT APTT Routine 02/02/2016 10:13 AM CDT PROTIME-INR Routine 02/02/2016 10:13 AM CDT COMPREHENSIVE METABOLIC PANEL Routine 02/02/2016 10:13 AM CDT XR CHEST 1 VIEW Routine 02/02/2016 12:[address] HEAD WO CONTRAST Routine 02/02/2016 1 2:00 AM CDT documented in this encounter Results * (ABNORMAL) Urinalysis (02/02/2016 11:09 AM CDT) Ur Collection Type CLEAN CATCH 02/02/2016 11:49 AM T [facility] Si TV HISTORICAL RESULTS Urine Color YELLOW YELLOW 02/02/2016 11:49 AM T [facility] Si TV HISTORICAL RESULTS Urine Clarity CLEAR CLEAR 02/02/2016 11:49 AM T [facility] Si TV HISTORICAL RESULTS Urine Glucose (UA) NORMAL NORMAL mg/dL 02/02/2016 11:49 AM T [facility] Si TV HISTORICAL RESULTS Urine Bilirubin NEGATIVE NEGATIVE mg/dl 02/02/2016 11:49 AM T [facility] Si TV HISTORICAL RESULTS Urine Ketones NEGATIVE NEGATIVE mg/dL 02/02/2016 11:49 [facility] Ur Specific Slemp 1.015 1.005 - 1.025 02/02/2016 11:49 AM [facility] Urine Blood 0.03(H) NEGATIVE mg/dl 02/02/2016 11:49 AM T [facility] HISTORICAL RESULTS Urine pH 6.0 5.0 - 8.0 Urine Protein NEGATIVE NEGATIVE mg/dL Urine Urobilinogen NORMAL NORMAL mg/dL Urine Nitrite NEGATIVE NEGATIVE Ur Leukocyte Esterase NEGATIVE NEGATIVE Jose Maria/ul Ur Microscopic Review Not Indicated Urine RBC 5 0 - 2 /HPF Urine WBC 1 0 - 2 /HPF Urine Mucus RARE /LPF Ur Squamous Epith Cells Rare /HPF 02/02/2016 11:0 9 AM CDT 02/02/2016 11:36 AM CDT us Tony Bowman MD LAB URINE ORDERABLES Final Re sult [facility] HISTORICAL RESULTS * (ABNORMAL) TNI with LIPID PANEL (02/02/2016 10:13 AM CDT) Troponin I < 0.300 0.000 - 0.300 ng/mL Comment: Reference using KUMAR Chemiluminescence ? Negative: Repeat in 4-6 hours as indicated. Triglycerides 135 0 - 199 mg/dL Comment:12 hr pc highly chad mmended for Triglyceride Cholesterol 205(H) 0 - 199 mg/dL Comment: Borderline: ??200-239 High Risk: ?? >239 HDL Cholesterol 63(H) 40 - 60 mg/dL Comment: Major Risk ?< 40 mg/dL Moderate Risk ?40-60 mg/dL Negative Risk ?? > 60 mg/dL LDL Cholesterol, Calc 115 0 - 130 mg/dL Comment:High Risk > 159 mg/d L Cholesterol/HDL Ratio 3.3 Comment: Cholesterol / HDL Ratio 3.5:1 or less is desirable. Cholesterol / HDL Ratio greater than 5:1 is considered higher risk for developing heart disease. 02/02/2016 10:1 3 AM CDT 02/02/2016 10:16 AM CDT us Tony Bowman MD LAB BLOOD ORDERABLES Final Re sult [facility] HISTORICAL RESULTS * Protime-INR (02/02/2016 10:13 AM CDT) PT 13.4 11.8 - 14.5 SECONDS INR 1.03 0.01 - 5.99 Comment: Recommended Therapeutic range for Oral Anticoagulant Therapy No anti-coagulation therapy ? Normal Range: ?0.8-1.4 Anti-coagulation therapy ? Low intensity therapy ?2.0-3.0 ? High intensity therapy ?? 2.5-3.5 Critical Value ? Greater than or equal to 6.0 Patients should be monitored for serious bleeding. ?? 02/02/2016 10:1 3 AM CDT 02/02/2016 10:16 AM CDT Tony Bowman MD LAB BLOOD ORDERABLES Final Re sult [facility] HISTORICAL RESULTS * (ABNORMAL) aPTT (02/02/2016 10:13 AM CDT) APTT 25(L) 26 - 33 SECONDS 02/02/2016 10:1 3 AM CDT 02/02/2016 10:16 AM CDT Tony Bowman MD LAB BLOOD ORDERABLES Final Re sult Performing Organization Address City/[facility]/ZIP Co de Phone Number [facility] HISTORICAL RESULTS * Comprehensive metabolic panel (02/02/2016 10:13 AM CDT) Sodium 138 135 - 145 mmol/L Potassium 3.6 3.3 - 5.1 mmol/L Chloride 102 96 - 108 mmol/L Carbon Dioxide 26 22 - 32 mmol/L Anion Gap 10 7 - 16 Glucose 92 70 - 100 mg/dL BUN 12 6 - 20 mg/dL Creatinine 0.5 0.5 - 1.1 mg/dL Comment: NOTE: Estimated GFR (Cockroft-Gault) will NOT be calculated unless patient Height and Weight were entered. Also, Kidney Disease Stage (GFR) and Estimated GFR (Cockroft-Gault) will NOT be calculated if Creatinine result is <0.2. Kidney Disease Stage > 90 mL/MIN Comment: NOTE; ??The GFR is an estimated value using the creatinine, sex, age, and race of the patient. THE ESTIMATED GFR IS VALIDATED FOR AGES 18-70 YEARS STAGE ?mL/Min ?DESCRIPTION ??1 ?90 mL/min or more ?Normal or elevated GFR ??2 ? 60-89 mL/min ?Mildly decreased GFR ??3 ? 30-59 mL/min ?Moderately decreased GFR ??4 ? 15-29 mL/min ?Severely decreased GFR ??5 ? <15 mL/min ? Kidney failure or on dialysis @ Est GFR (Cockcroft-G) 162 ml/MIN 02/02/2016 10:57 AM [facility] Calcium 8.7 8.6 - 10.0 mg/dL 02/02/2016 10:57 AM [facility] Total Protein 6.9 6.4 - 8.3 g/dL 02/02/2016 10:57 AM [facility] Albumin 4.0 3.5 - 5.2 g/dL 02/02/2016 10:57 AM [facility] Globulin 2.9 2.3 - 3.5 gm/dL 02/02/2016 10:57 AM [facility] Albumin/Globulin Ratio 1.4 1.1 - 1.8 02/02/2016 10:57 AM [facility] Total Bilirubin 0.5 0.0 - 1.2 mg/dL 02/02/2016 10:57 AM [facility] AST 17 0 - 32 U/L 02/02/2016 10:57 AM [facility] ALT 19 0 - 33 U/L 02/02/2016 10:57 AM [facility] Alkaline Phosphatase 76 35 - 104 U/L 02/02/2016 10:57 AM CDT [facility] Si TV HISTORICAL RESULTS 02/02/2016 10:1 3 AM CDT 02/02/2016 10:16 AM CDT us Tony Bowman MD LAB BLOOD ORDERABLES Final Re sult [facility] HISTORICAL RESULTS * (ABNORMAL) CBC with auto differential (02/02/2016 10:13 AM CDT) WBC 6.2 4.6 - 10.2 x10 3/ul 02/02/2016 10:35 AM CDT [facility] [facility] HISTORICAL RESULTS RBC 4.16 3.76 - 4.80 x10 6/ul 02/02/2016 10:35 AM T [facility] Si TV HISTORICAL RESULTS Hemoglobin 13.2 11.0 - 15.0 g/dl 02/02/2016 10:35 AM T [facility] [facility] HISTORICAL RESULTS Hct 39.5 33.0 - 43.0 % 02/02/2016 10:35 AM T [facility] [employer] HISTORICAL RESULTS MCV 95.0 80.0 - 97.0 fl 02/02/2016 10:35 AM T [facility] [employer] [facility] HISTORICAL RESULTS MCH 31.7(H) 27.0 - 31.2 pg 02/02/2016 10:35 AM T [facility] TV HISTORICAL RESULTS MCHC 33.4 31.8 - 35.4 g/dl 02/02/2016 10:35 AM T [facility] [employer] [facility] HISTORICAL RESULTS RDW 12.2 11.6 - 14.8 % 02/02/2016 10:35 AM T [facility] [employer] [facility] HISTORICAL RESULTS Plt Count 225 124 - 400 x10 3/ul 02/02/2016 10:35 AM T [facility] [employer] [facility] HISTORICAL RESULTS MPV 10.4 7.4 - 10.4 fl 02/02/2016 10:35 AM [facility] Si TV HISTORICAL RESULTS Differential Method AUTOMATED DIFF --------- -- 02/02/2016 10:35 AM [facility] Si TV HISTORICAL RESULTS Neut % 73.2 37.0 - 85.0 % 02/02/2016 10:35 AM T [facility] Si TV HISTORICAL RESULTS Immature Gran % 0.2 0.0 - 3.0 % Lymph % 19.4 5.0 - 45.0 % Kemper % 6.1 3.0 - 15.0 % Eos % 0.6 0.0 - 7.0 % Baso % 0.5 0.0 - 2.0 % ABSOLUTE COUNTS ABSOLUTE COUNTS --------- -- Absolute Neuts (auto) 4.5 1.7 - 8.7 x10 3/ul Immature Gran # 0.0 0.0 - 0.3 x10 3/ul Absolute Lymphs (auto) 1.2 0.2 - 4.6 x10 3/ul Absolute Monos (auto) 0.4 0.1 - 1.5 x10 3/ul Absolute Eos (auto) 0.0 0.0 - 0.7 x10 3/ul Absolute Basos (auto) 0.0 0.0 - 0.2 x10 3/ul 02/02/2016 10:1 3 AM CDT 02/02/2016 10:16 AM CDT us Tony Bowman MD LAB BLOOD ORDERABLES Final Re sult [facility] HISTORICAL RESULTS * CT Head WO Contrast (02/02/2016 12:00 AM CDT) Anatomical Region Laterality Modality Head and Neck N/A Computed Tomogra phy 02/02/2016 Impressions 02/02/2016 10:52 AM CDT ?? 1. ??No acute intracranial abnormality. THIS IS AN ELECTRONICALLY VERIFIED REPORT 02/02/2016 10:49 AM: ??Hang Lambert M.D. ?? Hang Lambert M.D. RB:sonny 10:49 AM 10:49 AM PIN [EOD] Narrative 02/02/2016 10:52 AM CDT EXAMINATION: ??CT head without contrast HISTORY: ??Syncopal episode earlier this morning. ??Has had similar episodes in the past. COMPARISON: ??None TECHNIQUE: ??3 mm transverse images of the head were obtained without intravenous contrast. FINDINGS: ??There is no evidence of intracranial hemorrhage, mass, midline shift, extra-axial fluid, or infarct. ??The ventricles are within normal limits in size. ??The quadrigeminal cistern is patent. ??The visualized portions of the paranasal sinuses are clear. ??The mastoids are well aerated. ??No skull fracture is identified. Procedure Note Provider, MD Prabhjot - 02/07/2021 EXAMINATION: CT head without contrast HISTORY: Syncopal episode earlier this morning. Has had similar episodesin the past. COMPARISON: None TECHNIQUE: 3 mm transverse images of the head were obtained without intravenous contrast. FINDINGS: There is no evidence of intracranial hemorrhage, mass, midline shift, extra-axial fluid, or infarct. The ventricles are within normallimits in size. The quadrigeminal cistern is patent. The visualized portions ofthe paranasal sinuses are clear. The mastoids are well aerated. No skull fracture is identified. IMPRESSION: 1. No acute intracranial abnormality. THIS IS AN ELECTRONICALLY VERIFIED REPORT 02/02/2016 10:49 AM: Hang Biermann, M.D. Hang Lambert M.D. RB:rb 10:49 AM 10:49 AM PIN [EOD] us Tony Bowman MD IMG CT PROCEDURES Final Resul t * XR Chest 1 View (02/02/2016 12:00 AM CDT) Anatomical Region Laterality Modality Body, Chest N/A Radiographic Daiana ging 02/02/2016 Impressions 02/02/2016 11:34 AM CDT ?? No radiographic evidence of an acute cardiopulmonary process. THIS IS AN ELECTRONICALLY VERIFIED REPORT 02/02/2016 11:31 AM: ??Aiden Helms M.D. ?? Aiden Helms M.D. AT:at 11:31 AM 11:31 AM [facility] [EOD] Narrative 02/02/2016 11:34 AM CDT EXAMINATION: ??AP radiograph of the chest. ?? DATE: ??02/02/2016 at 11:18 a COMPARISON: ??None HISTORY: ??Syncopal episode this morning with headache. TECHNIQUE: ??Single AP radiograph of the chest was submitted for review. FINDINGS: ?? Cardiac silhouette is within normal limits in size. ??Trachea is midline. ??The lungs appear normally expanded. ??There is no consolidation, pneumothorax or large pleural effusion. Procedure Note Provider, MD Prabhjot - 02/07/2021 EXAMINATION: AP radiograph of the chest. DATE: 02/02/2016 at 11:18 a COMPARISON: None HISTORY: Syncopal episode this morning with headache. TECHNIQUE: Single AP radiograph of the chest was submitted for review. FINDINGS: Cardiac silhouette is within normal limits in size. Trachea is midline.The lungs appear normally expanded. There is no consolidation, pneumothoraxor large pleural effusion. IMPRESSION: No radiographic evidence of an acute cardiopulmonary process. THIS IS AN ELECTRONICALLY VERIFIED REPORT 02/02/2016 11:31 AM: Aiden Helms M.D. Aiden Helms M.D. AT:at 11:31 AM 11:[address] [facility] [EOD] Tony Bowman MD IMG XR PROCEDURES Final Resul t documented in this encounter Visit Diagnoses Diagnosis Syncope and collapse Bariatric surgery status Acquired absence of other specified parts of digestive tract documented in this encounter Care Teams Maintenance Repairer Relationship Specialty Start Date End Date Danial Murillo MD [address] [place] [address] PCP - General 01/05/15 04/18/22 documented as of this encounter
--- OUTSIDE RECORDS SUMMARY | 2024-09-19 04:57 | XMS_ITS | Encounter Summary ---
Author Organization [facility] Healthcare Address [address] [place] [address] Care Team Providers Care Superintendent Pipelines Name Role Phone Ana Boyer NP Primary Care Provider [phone] Encounter Details Date Type Department Care Team (Late st Contact Info) Description 04/19/2022 7:30 AM CDT - 04/19/2022 1:00 PM CDT Surgery [facility] OR [address] [place] [id number] Oliver Leigh, DO [address] [place] [address] [id number] ABDOMINOPLASTY Surgery Details Date/Time Status Location OR Service Patient Class Case Cl ass Case Type Trauma Case? 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[employer] Gender Identity Not on file Sexual Orientation Not on file documented as of this encounter Last Filed Vital Signs Vital Sign Reading Time Taken Comments Blood Pressure 133/93 04/19/2022 12:38 PM CDT Pulse 84 04/19/2022 12:38 PM CDT Temperature 36.1 ??C (97 ??F) 04/19/2022 12:38 PM CDT Respiratory Rate 12 04/19/2022 12:38 PM CDT Oxygen Saturation 99% 04/19/2022 6:47 AM CDT Inhaled Oxygen Concentration - - Weight 74.9 kg (165 lb 1.6 oz) 04/19/2022 6:15 A M CDT Height 165.1 cm (5' 5 ) 04/19/2022 6:15 AM CDT Body Mass Index 27.47 04/19/2022 6:15 AM CDT documented in this encounter Discharge Instructions * Discharge Instructions* Oliver Leigh DO - 04/19/2022 12:44 PM CDT No driving Refrain from aspirin, ibuprofen, or similar products due to increased bleeding risk Keep bent at the waist for [address]ows underneath the knees when lying down or sleeping Keep bent at the waist while walking for 3 days Record drain output twice a day Keep dressings clean, dry, as in place; keep compression binder in place Strip drains twice a day Sponge bath NO STENUOUS ACTIVITY Go to the emergency room or call office with sudden change in condition, severe bleeding, rapid heart rate, difficulty breathing or severe pain * Attachments The following attachments cannot be sent through Care Everywhere. * General Anesthesia (Discharge Care) ([place]) * Abdominoplasty (Discharge Care) ([place]) * Liposuction (Discharge Care) ([place]) documented in this encounter Medications at Time of Discharge busPIRone (BUSPAR) 5 mg tabletIndications:G eneralized Anxiety Disorder Take 5 mg by mouth 3 (three) times a day Nightly PRN CALCIUM CITRATE ORALIndications:gas tric bypass Take 1,200 mg by mouth daily cefadroxil (DURICEF) 500 mg capsule Take 1 capsule (500 mg total) by mouth 2 (two) times a day 14 capsule 2 cetirizine (ZyrTEC) 10 mg tablet Take 10 mg by mouth daily cholecalciferol (VITAMIN D-3) 5,000 unit tabletIndications:g astric bypass Take 5,000 Units by mouth daily cyanocobalamin (Vitamin B-12) 1,000 mcg tabletIndications:P revention of Vitamin B12 Deficiency,gastric bypass Take 1,000 mcg by mouth daily cyclobenzaprine (FLEXERIL) 10 mg tablet Take 10 mg by mouth nightly PRN docusate sodium (COLACE) 100 mg capsuleIndications: constipation Take 1 capsule (100 mg total) by mouth 2 (two) times a day as needed for constipation 20 capsule 2 LORazepam (ATIVAN) 1 mg tabletIndications:a nxiety Take 1 mg by mouth nightly PRN 2 2 multivitamin capsule Take 1 capsule by mouth daily ondansetron ODT (ZOFRAN-ODT) 4 mg disintegrating tabletIndications:P revention of Post-Operative Nausea and Vomiting Take 1 tablet (4 mg total) by mouth every 8 (eight) hours as needed for nausea or vomiting 20 tablet 1 2 oxyCODONE-acetamino phen (PERCOCET) 5-325 mg per tabletIndications:P ain Take 1 tablet by mouth every 4 (four) hours as needed for pain 35 tablet 2 pseudoephedrine (SUDAFED) 30 mg tabletIndications:N yajaira Congestion Take 30 mg by mouth every 6 (six) hours as needed for congestion documented as of this encounter Ordered Prescriptions Prescription Sig Dispense Quantity Refills Last Filled Start Date End Date ondansetron ODT (ZOFRAN-ODT) 4 mg disintegrating tabletIndications:P revention of Post-Operative Nausea and Vomiting Take 1 tablet (4 mg total) by mouth every 8 (eight) hours as needed for nausea or vomiting 20 tablet 1 2 docusate sodium (COLACE) 100 mg capsuleIndications: constipation Take 1 capsule (100 mg total) by mouth 2 (two) times a day as needed for constipation 20 capsule 2 cefadroxil (DURICEF) 500 mg capsule Take 1 capsule (500 mg total) by mouth 2 (two) times a day 14 capsule 2 oxyCODONE-acetamino phen (PERCOCET) 5-325 mg per tabletIndications:P ain Take 1 tablet by mouth every 4 (four) hours as needed for pain 35 tablet 2 documented in this encounter Discharge Disposition Disposition Code Departure Means Destination Discharge to home or self care documented in this encounter H&P Notes * Oliver Leigh, DO - 04/19/2022 7:14 AM CDT Neida Manohar Acosta 51 y.o. female Date of Service 04/19/2022 CC: Lower abdominal fold rashes and irritation with skin redundancy status post gastric bypass surgery HPI: This 51-year-old female presented to the office with a history of gastric bypass in 2009. 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 This does affect her daily lifestyle. The patient denies any trauma or injury to the abdomen. She denies any hernia or abdominal wall weakness. The patient also denies any history of bleeding or healing abnormalities. She has attempted deodorant in other cream/powders without significant success to prevent the lower abdominal fold moisture. She states that shehas quit smoking several weeks ago and has not used any nicotine products since then. PMH: Past Medical History: Diagnosis Date ??? HX OTHER MEDICAL tubal ligation ??? HX OTHER MEDICAL gastric bypass surgery in 2009 ??? Vertigo 04/12/2022 occasional PSH: Past Surgical History: Procedure Laterality Date ??? CHOLECYSTECTOMY 2016 ??? ORAL SURGERY oropharyngeal surgery for DANIELLE, unknown name of procedure ??? SINUS SURGERY ??? TONSILLECTOMY Tonsillectomy ??? URETER SURGERY 1975 Allergies: Allergies Allergen Reactions ??? Codeine Itching Liquid codeine, codeine #3 caused no itching ??? Tramadol Vomiting Medications: Current Facility-Administered Medications Medication Dose Route Frequency Provider Last Rate Last Admin ??? Carrier Fluids for Secondary Infusion - 0.9% Sodium Chloride 30 mL intravenous PRN Meierotto, Trevor Ariel, DO ??? ceFAZolin (ANCEF) 2,000 mg/20 mL in sterile water (premix) 2,000 mg 2,000 mg intravenous Once Oliver Leigh, DO ??? Lactated Ringer's (LR) infusion 30 mL/hr intravenous Continuous Trevor Rae, DO 30 mL/hr at 04/19/22 0700 Rate Verify at 04/19/22 0700 ??? sodium chloride 0.9% flush 0.5-20 mL 0.5-20 mL intra-catheter PRN Trevor Rae, DO Family Hx: Family History Problem Relation Age of Onset ??? Other Mother Alive and well; ??? Other Father Alive and well; ??? Other Brother Alive and well; Social Hx: Social History Tobacco Use ??? Smoking status: Former Smoker Types: Cigarettes Quit date: 2020 Years since quittin.5 ??? Smokeless tobacco: Never Used Substance and Sexual Activity ??? Drug use: Yes Frequency: 2.0 times per week Types: Marijuana ??? Sexual activity: None Alcohol Use: Not At Risk ??? Frequency of Alcohol Consumption: Never ??? Average Number of Drinks: Not on file ??? Frequency of Binge Drinking: Not on file Review of Symptoms: 12 point ROS is negative aside from that mentioned in HPI and PMH/PSH which were reviewed preoperatively in the office: the patient denies any recent cardiovascular or pulmonary events PHYSICAL EXAM: Blood pressure 133/93, pulse 76, temperature 36.6 ??C (97.9 ??F), temperature source Temporal, resp. rate 18, height 165.1 cm (5' 5 ), weight 74.9 kg (165 lb 1.6 oz), SpO2 99 %. Body mass index is 27.47 kg/m??. GEN: Well developed in no acute distress SKIN: No obvious lesions, masses or rash; no jaundice HEENT: Neck supple, no masses CHEST: Unlabored breathing, no accessory muscle use BREAST: deferred HEART: Regular rhythm, 2+ radial, DP, PT pulses ABDOMEN: Significant skin redundancy is seen with localized adiposity. 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 The patient denies any hernias, blood thinners, or recent illnesses. We discussed the size location of the expected scar. She will have slight roundness of the abdomen. She is leaning towards no fascial plication the patient is aware that her recent nicotine use increases the risk of seroma/hematoma/abnormal healing/abnormal scarring/wound dehiscence. I did offer the patient to have her surgery postponed due to this recent nicotine use, but the patient has decided to proceed knowing these increased risks. Risks that were discussed include were not limited to bleeding, infection, seroma, hematoma, chronic pain,chronic numbness, poor scarring, poor wound healing, and the need for additional surgery to amend these issues. She had time to read, reviewed, and signed the ASPS consent forms. The patient is awareof her postoperative limitations. All questions were answered to the best of our ability. Oliver Leigh DO 04/19/2022 7:14 AM documented in this encounter Miscellaneous Notes * Op Note - Oliver Leigh DO - 04/19/2022 7:30 AM CDT PLASTIC SURGERY OPERATIVE NOTE DATE OF SURGERY : 04/19/2022 PATIENT INFORMATION Patient Name: Neida Acosta Date of : 1970 SURGEON: Oliver Leigh DO SURGICAL TEAM: Surgeon(s) and Role: * Oliver Leigh DO - Primary Bottle Selector: Anu Meeks RN; Amber Veras RN Bottle Selector Relief: Lucia Oliveira RN Scrub: Sophie Russell RN CLINICAL EDUCATION SPECIALIST: Rossana Ivan CRNFA ANESTHESIA: Anesthesiologist: Tin Gil MD TUMBLING AND ROLLING SUPERVISOR: Sheryl Magana CRNA General PREOPERATIVE DIAGNOSIS: Lower abdominal skin rashes and irritation with extra skin redundancy and localized adiposity POSTOPERATIVE DIAGNOSIS: Same PROCEDURE: ABDOMINOPLASTY, LIPOSUCTION TO BILATERAL FLANKS (B) Estimated Blood Loss: 100 mL Specimens: No specimens collected during this procedure. Complications: None Drains: 15. Paddy drain x2 INDICATION FOR PROCEDURE: Neida Acosta is a 51 y.o. who presents for removal of extra skin redundancy due to chronic rashes and irritation of the lower abdominal fold. She does have localized adiposity of the central abdomen and flanks. We discussed her preoperative asymmetries and how they can affect her postoperative result. Specifically the slight fullness of the right lower quadrant as well as extra skin redundancy differences bilaterally. A thorough discussion of the size location of the expected scars as well as postoperative limitations was explained. The risks, benefits, alternatives, and non-surgical options were discussed with the patient. The risks that were discussed included, but are not limited to bleeding, infection, seroma, hematoma, chronic pain, chronic numbness, poor scarring, poor wound healing, dehiscence of the wound, poor cosmetic outcome, injury to surrounding structures, and the need for further procedures to amend these issues (this was discussed in the office pre-operatively, pre-surgery, or both). The patient voiced understanding, wished proceed, and signed the consent (ASPS consent forms were signed in the office if applicable). All of their questions were answered. OPERATIVE DETAILS On the day of the operation, I interviewed the patient in the pre-operative holding area. Consent was signed and the patient confirmed the correct location of the surgery site. Next, the patient was brought to the operating room and placed in the supine position. SCDs were placed for DVT prophylaxis and pre- operative IV antibiotics were provided. After successful induction of general anesthesia, the patient was prepped and draped in the usual sterile fashion. Time out was performed to correctlyidentify the patient, important medications, allergies, and all other pertinent information. All markings were again checked for symmetry and accuracy. Attention was then directed to lower abdominal area and supra umbilical. A combination of 1% lidocaine with epinephrine and 0.5% Marcaine of approximately 5 cc was placed. After waiting an appropriate amount of time, a number 15 blade scalpel was used to make an incision in these areas. 500 cc of tumescent was placed to each lateral flank and 2000 cc was placed to the central and mid abdomen. Over 10 minutes were allowed to elapse before ghost passes were performed. Power assisted suction assisted liposuction was performed using a 5 mm cannula. Cross hatching was completed using the multiple incisions to decrease the likelihood of asymmetries. Removal of fat was performed until minimal fat was able to be removed and or slight blood-tinged drainage was encountered. Quantity removed, time, and palpation were used to optimize symmetry. Approximately 1800 cc of tumescent and fat was removed in which approximately 600 cc was fat. Attention was then directed to the lower abdominal incision. Markings were again checked for accuracy. A 10.Blade scalpel used to make a hip to hip incision. Bovie electrocautery was used to transverse down t hrough the subcutaneous tissue until a pre fascial plane was encountered. Slight extra fat was lefton the hips to decrease postoperative pain and discomfort. A pre fascial plane was taken to the umbilicus. It was noted that the right hip was much more anterior than the left. Prominent veins were encountered and these were tied off. The umbilicus, which was slightly left lateral versus midline, wa s freed from the anterior abdominal area. The flaps were taken superiorly to the costal margins andxiphoid. The xiphoid had a prominence which created a drop-off centrally. Hemostasis was confirmed irrigation was completed. 30+ cc of local was placed per block for patient comfort. The patient was placed in a semi- Howe position. Additional markings were used, especially laterally, to remove thesignificant quantity of skin. The incisions were taken all the way back to the maximum position. A 10. Blade scalpel used to make an incision of these skin flaps. Bovie electrocautery was used to transverse down through the subcutaneous tissue and once again hemostasis was confirmed. The flaps weighed over 8 lb. Additional fat in the deep layers were was removed for optimization of symmetry. The suprapubic area was lightly free to allow for proper conversion. Once again hemostasis was confirmedirrigation was completed. Optimization of symmetry was seen. Hemostatic agent was placed to the abdomen and 2 15. Paddy's were placed. Fullness was seen and this was assessed. Equivalent thickness ofthe subcutaneous fat was noted, but the right hip was more anterior. A 3 layered closure was used to close the incision. 0 Vicryl, Insorb ophelia, and 4-0 Monocryl was used after optimization of the incision. A 15. Blade scalpel used to make an incision of the anterior skin for the umbilicus. The umbilicus was directly beneath the opening. It had proper capillary refill. Was brought into positionand secured in a multilayer fashion using 4-0 Monocryl. The skin flaps have proper capillary refill. The drains had light blood-tinged drainage. Benzoin, Steri-Strips, 4 x 4, Tegaderm, fluffs, ABD, and compression was placed to the abdomen. The patient was transferred in a semi-Howe position. Sponge, instrument, and needle counts were correct at the end of the case x2. The patient was awakened from anesthesia and transferred to the post-anesthesia care in stable condition. Condition on Discharge from the operating room was stable Oliver Leigh DO Date: 04/19/2022 Time: 12:25 PM * Pre-Procedure Instructions - Monica Connor RN - 04/13/2022 9:45 AM CDT Pre-Procedure Instructions We are pleased that you and your doctor have chosen [facility] for your surgery. We hope that the following information will help make your visit a pleasant one. Surgery Date: 04/19/2022 Arrival Time 05:20AM : Please arrive at [address] [id number] Please park in the first parking lot on left side of driveway. Enter through front door. ([address] with flagpoles) Before your surgery: ?? Notify your doctor of ANY change in your health such as a cold, sore throat, fever, any infection or a change in the problem for which you are having your surgery. ?? Follow any instructions given to you by your doctor or surgeon. Medication Instructions: Medications taken morning of surgery should be taken only with small sip of clear water. Pre-Surgery Instructions: Medication Instructions ??? busPIRone (BUSPAR) 5 mg tablet May take as prescribed ??? CALCIUM CITRATE ORAL HOLD 1 WEEK ??? cholecalciferol (VITAMIN D-3) 5,000 unit tablet HOLD 1 WEEK ??? cyanocobalamin (Vitamin B-12) 1,000 mcg tablet HOLD 1 WEEK ??? cyclobenzaprine (FLEXERIL) 10 mg tablet May take as prescribed ??? LORazepam (ATIVAN) 1 mg tablet May take as prescribed ??? multivitamin capsule HOLD 1 WEEK Check with your doctor if you need to STOP taking: ?? Aspirin (ordered by your doctor) ?? Plavix ?? Coumadin One week before surgery STOP taking: ?? All vitamins and herbal supplements unless otherwise specified to continue by care provider. ?? Aspirin or trade name Catia(not ordered by your doctor) ?? Naproxen or trade name Aleve; Ibuprofen or trade name Advil, Motrin; or other similar medications (Tylenol is okay). 24 hours before your surgery: ?? No smoking or alcoholic drinks. Night before your surgery: ?? Do not eat or drink anything after midnight. Day of surgery: ?? Do not swallow any water when you brush your teeth. ?? Bring contact lens, hearing aids, glass cases and denture container if you use any of these items. ?? Use no make-up, nail iraqi, lotions, oils or powders on your skin. ?? Wear comfortable clothes that will not be tight in the area of your surgery. ?? Leave all valuables and jewelry (including all rings and body piercing jewelry) at home. ?? Please bring your a photo ID and insurance cards with you. ?? Check in at the Registration Desk. ?? If you are 17 years old or younger, a parent or guardian must come with you Showering Instructions: Before surgery you can play an important role in your own health. Showeringwith the antiseptic soap solution CHG (chlorhexidine gluconate) or Hibiclens greatly reduces the number of germs on the skin. You may spanish moss picker a bottle of this soap from the front office manager at [facility] for no charge or at your expense from local drugstores. Please read all of these instructions first and then follow them closely. o DO NOT use the antiseptic solution if you are allergic to CHG (chlorhexidine gluconate). If you are allergic use an antibacterial soap, such as Dial. o Avoid shaving or the use of any topical hair removers at or around the surgical site. o DO NOT use antiseptic solution on your face, head or neck. Do not use on hair. Do not allow solution to get in eyes, ears, nose or mouth. o DO NOT use in genital area. If contact in these areas rinse immediately and thoroughly with plenty of water. o If rash, redness, itching or any other symptoms of allergy occur, stop use immediately and call your physician or the [place] [facility] ( ) right away if symptoms persist. o Please refer to the product label for full drug labeling and product warnings. o The solution is for your use only. Do not give it to anyone else. Night before surgery: o Wash and rinse your hair first using your normal shampoo. Make sure you completely rinse from hair and body. o Shower with an antibacterial soap washing your entire body. Use clean washcloth only. o Then shower from the neck down with the antiseptic solution. Use half (1/2) of the solution the night before surgery and save the other half for you morning shower. o Apply the solution to a second clean wet washcloth. o Turn the water off in the shower or move away from the water spray to avoid rinsing the solution off or splashing. o Lather your entire body from the NECK DOWN. Never use the solution near your eyes, ears, nose, mouth or genitals. o Gently wash your body and focus the scrub on the areas where the incision(s) will be located for about 3 minutes. Avoiding scrubbing the skin too hard. o Once you have finished, rinse the soap solution off of your body completely. o DO NOT wash with regular soap after using the solution. o Pat yourself dry with a clean, freshly laundered towel. o DO NOT apply powders, deodorants, creams, hair products and make up. o Sleep with freshly laundered pajamas on freshly laundered bedding. o Do not have contact with pets. Morning of surgery: o Please repeat above instructions o Dress with loose fitting, comfortable, freshly laundered clothing. Visitation Policy: Only 1-2 visitors day of surgery. Must be over the age of 14, no children. Please limit visitors to 2 maximum and the preference is 1. [employer] has limited food and drink options due to COVID. Please have visitors bring any snacks, drinks, with them to day of surgery. After your Outpatient Surgery: ?? You must have a responsible adult to drive you home, you will not be allowed to drive or take a cab home. ?? We recommend you have someone stay with you for 24 hours after your surgery. What to bring if you are spending the night with us: ?? Bring toiletry items such as: robe, slippers, toothbrush, toothpaste, brush or comb. ?? The hospital will provide you with a gown. Questions or concerns: ?? If you have any questions or concerns regarding your procedure, contact your surgeon as soon as possible. ?? If you have questions regarding your Pre-Admission Testing, please call us. We can be reached [phone] documented in this encounter Plan of Treatment Not on file documented as of this encounter Procedures Procedure Name Priority Date/Time Associated Diagnosis Comments LIPOSUCTION 04/19/2022 7:01 AM CDT COSMETIC ABDOMINOPLASTY 04/19/2022 7:01 AM CDT COSMETIC POCT CREATININE FOR CONTRAST EVALUATION Routine 04/19/2022 6:43 AM CDT POC BLOOD GAS AND CHEMISTRIES, VENOUS Routine 04/19/2022 6:36 AM CDT ECG 12-LEAD STAT 04/19/2022 6:24 AM CDT documented in this encounter Results * POCT creatinine for contrast evaluation (04/19/2022 6:43 AM CDT) Creatinine POC 0.70 0.60 - 1.10 mg/dL EMPERATRIZ Comment:Testing performed by : [facility], [address] [place] [address], [place]., [address] Blood 04/19/2022 6:43 AM CDT 04/19/2022 6:43 AM CDT Oliver Leigh DO POINT OF CARE TEST ORDERABLES F inal Result EMPERATRIZ [address] [facility] Department [place] [address] * (ABNORMAL) POC Blood Gas and Chemistries, Venous - (04/19/2022 6:36 AM CDT) pH,flores POC 7.39 7.32 - 7.43 EMPERATRIZ Comment:Testing performed by : [address] [address] pCO2, flores POC 39(L) 40 - 50 mmHg EMPERATRIZ Comment:Testing performed by : [address] [address] pO2,flores POC 35 mmHg EMPERATRIZ Comment: Interpretive Data No reference range established. Current interpretive data was last revised 2020. Testing performed by: [address] [address] HCO3, flores (Calc) POC 24 20 - 30 mmol/L EMPERATRIZ Comment:Testing performed by : [address] [address] Base excess, flores POC -1 mmol/L EMPERATRIZ Comment: Interpretive Data No reference range established. Current interpretive data was last revised 2020. Testing performed by: [address] [address] Hemoglobin, flores POC 13.3 11.9 - 15.5 g/dL EMPERATRIZ Comment:Testing performed by : [address] [address] [address] Hematocrit, flores POC 39.0 35.6 - 45.5 % EMPERATRIZ Comment:Testing performed by : [address] [address] Sodium, flores POC 141 135 - 145 mmol/L EMPERATRIZ Comment:Testing performed by : [address] [address] Potassium, flores POC 3.2(L) 3.3 - 4.9 mmol/L EMPERATRIZ Comment: Interpretive Data Unable to assess hemolysis, Invitro hemolysis causes falsely elevated potassium. Current interpretive data was last revised on 2020. Testing performed by: [address] [place]., [address] Glucose, flores POC 94 70 - 199 mg/dL EMPERATRIZ Comment:Testing performed by : [facility], [address] [place] [address]., [address] Ionized Calcium, flores POC 4.80 4.50 - 5.20 mg/dL EMPERATRIZ Comment:Testing performed by : [facility], [address] [place] [address]., [address] Blood 04/19/2022 6:36 AM CDT 04/19/2022 6:36 AM CDT Oliver Leigh DO LAB POCT ORDERABLES - DEVICE Fi nal Result Performing Organization Address [facility]/ZIP Co de Phone Number EMPERATRIZ [address] [facility] Department [place] [address] * ECG 12 lead (04/19/2022 6:24 AM CDT) Ventricular Rate EKG/Min 65 BPM [facility] Atrial Rate [address] [facility] [place]-Interval (MSEC) [address] [facility] QRS-Interval (MSEC) [address] [facility] QT-Interval (MSEC) [address] [facility] QTc [address] [facility] P [place] [address] [facility] R [place] [address] [facility] T [place] [address] [facility] Diagnosis Normal sinus rhythm Normal ECG When compared with ECG of 02-FEB-2016 10:18, No significant change was found [facility] 04/19/2022 6:24 AM CDT 04/19/2022 5:20 PM CDT Trevor Rae DO ECG ORDERABLES Kaitlin gurrola Result Performing Organization Address City/[facility]/ZIP Co de Phone Number [facility] documented in this encounter Visit Diagnoses Not on filedocumented in this encounter Administered Medications Inactive Administered Medications - up to 3 most recent administrations Medication Order MAR Action Action Date Dose Rate Site acetaminophen (TYLENOL) tablet 975 mg 975 mg, oral, Once, On Stephanie 04/19/22 at 0615, For 1 dose, Pre-Op, Indications: Pre-Emptive AnalgesiaIndications:Pre-Emptive Analgesia Given 04/19/2022 6:52 AM CDT 975 mg bupivacaine (MARCAINE) 0.25 % (2.5 mg/mL) preservative free injection As needed, Starting on Stephanie 04/19/22 at 1001, Intra-Op Given 04/19/2022 10:00 AM CDT 30 mL ceFAZolin (ANCEF) 1,000 mg, gentamicin (GARAMYCIN) 80 mg in sodium chloride 0.9% 1,000 mL irrigation solution As needed, Starting on Stephanie 04/19/22 at 1100, Intra-Op Given 04/19/2022 11:00 AM CDT 300 mL famotidine (PEPCID) tablet 20 mg 20 mg, oral, Once, On Stephanie 04/19/22 at 0615, For 1 dose, Pre-Op, Indications: gastroesophageal reflux diseaseIndications:gastroesophagea l reflux disease Given 04/19/2022 6:52 AM CDT 20 mg HYDROmorphone (DILAUDID) injection 0.4 mg 0.4 mg, intravenous, Administer over 2 Minutes, Every 10 min PRN, 2nd line for pain, Starting on Stephanie 04/19/22 at 1249, Phase I, May administer 10 mintes after 2nd dose of 1st line analgesic agent for uncontrolled or increasing pain. Revert to 1st line dose if POSS of 3. Notify Anesthesiologist if total PACU dose reaches 2 mg and pain score 5/10 or more., Indications: PainIndications:Pain Given 04/19/2022 1:48 PM CDT 0.4 mg Given 04/19/2022 1:21 PM CDT 0.4 mg Lactated Ringer's (LR) infusion 30 mL/hr, intravenous, Continuous, Starting on Stephanie 04/19/22 at 0615, Pre-Op, New Bag 04/19/2022 11:45 AM CDT 30 mL/hr New Bag 04/19/2022 8:50 AM CDT 30 mL/hr Rate/Dose Verify 04/19/2022 7:24 AM CDT 30 mL/h r lidocaine-EPINEPHrine (XYLOCAINE with EPI) 1 %-1:100,000 20 mL, EPINEPHrine (ADRENALIN) 1 mg in Lactated Ringer's (LR) 1,000 mL solution As needed, Starting on Stephanie 04/19/22 at 0808, Intra-Op Given 04/19/2022 8:08 AM CDT 1,000 mL lidocaine-EPINEPHrine (XYLOCAINE with EPI) 1 %-1:100,000 20 mL, EPINEPHrine (ADRENALIN) 1 mg in Lactated Ringer's (LR) 1,000 mL solution As needed, Starting on Stephanie 04/19/22 at 0810, Intra-Op Given 04/19/2022 8:10 AM CDT 1,000 mL lidocaine-EPINEPHrine (XYLOCAINE with EPI) 1 %-1:100,000 20 mL, EPINEPHrine (ADRENALIN) 1 mg in Lactated Ringer's (LR) 1,000 mL solution As needed, Starting on Stephanie 04/19/22 at 0811, Intra-Op Given 04/19/2022 8:11 AM CDT 1,000 mL lidocaine-EPINEPHrine (XYLOCAINE with EPI) 1 %-1:100,000 injection As needed, Starting on Stephanie 04/19/22 at 1000, Intra-Op, Indications: Administration of Local AnesthesiaIndications:Administration of Local Anesthesia Given 04/19/2022 10:00 AM CDT 20 mL meclizine (ANTIVERT) tablet 25 mg 25 mg, oral, Once, On Stephanie 04/19/22 at 0615, For 1 dose, Pre-Op, Po - 90 minutes pre-op, Indications: Prevention of Motion SicknessIndications:Prevention of Motion Sickness Given 04/19/2022 6:52 AM CDT 25 mg oxyCODONE-acetaminophen (PERCOCET) 5-325 mg per tablet 1 tablet 1 tablet, oral, Once, On Stephanie 04/19/22 at 1530, For 1 dose, Phase I & Post-op Floor, Indications: PainIndications:Pain Given 04/19/2022 2:59 PM CDT 1 tablet documented in this encounter Historical Medications * This list may reflect changes made after this encounter. pseudoephedrine (SUDAFED) 30 mg tabletIndication s:Nasal Congestion Take 30 mg by mouth every 6 (six) hours as needed for congestion cetirizine (ZyrTEC) 10 mg tablet Take 10 mg by mouth daily CALCIUM CITRATE ORALIndications: gastric bypass Take 1,200 mg by mouth daily cyanocobalamin (Vitamin B-12) 1,000 mcg tabletIndication s:Prevention of Vitamin B12 Deficiency,gastr ic bypass Take 1,000 mcg by mouth daily cholecalciferol (VITAMIN D-3) 5,000 unit tabletIndication s:gastric bypass Take 5,000 Units by mouth daily multivitamin capsule Take 1 capsule by mouth daily busPIRone (BUSPAR) 5 mg tabletIndication s:Generalized Anxiety Disorder Take 5 mg by mouth 3 (three) times a day Nightly PRN cyclobenzaprine (FLEXERIL) 10 mg tablet Take 10 mg by mouth nightly PRN LORazepam (ATIVAN) 1 mg tabletIndication s:anxiety Take 1 mg by mouth nightly PRN 2 03/22/2022 added in this encounter Active and Recently Administered Medications Times are shown in CDT. Scheduled Medication Order 04/17/2022 04/18/2022 04/19/2022 acetaminophen (TYLENOL) tablet 975 mg (COMPLETED) 975 mg, oral, Once, On Stephanie 04/19/22 at 0615, For 1 dose, Pre-Op, Indications: Pre-Emptive Analgesia 0652 (Given - Provid er: Danielle Genao RN) ceFAZolin (ANCEF) 2,000 mg/20 mL in sterile water (premix) 2,000 mg (COMPLETED) 2,000 mg, intravenous, at 400 mL/hr, Administer over 3 Minutes, Once, On Stephanie 04/19/22 at 0615, For 1 dose, Pre-Op, Indications: Prophylaxis, Surgical 0736 (Given - Provid er: Sheryl Magana CRNA)1126 (Given - Provider: Sheryl Magana CRNA) famotidine (PEPCID) tablet 20 mg (COMPLETED) 20 mg, oral, Once, On Stephanie 04/19/22 at 0615, For 1 dose, Pre-Op, Indications: gastroesophageal reflux disease 0652 (Given - Provid er: Danielle Genao RN) meclizine (ANTIVERT) tablet 25 mg (COMPLETED) 25 mg, oral, Once, On Stephanie 04/19/22 at 0615, For 1 dose, Pre-Op, Po - 90 minutes pre-op, Indications: Prevention of Motion Sickness 52 (Given - Provid er: Danielle Genao RN) oxyCODONE-acetaminophen (PERCOCET) 5-325 mg per tablet 1 tablet (COMPLETED) 1 tablet, oral, Once, On Stephanie 04/19/22 at 1530, For 1 dose, Phase I & Post-op Floor, Indications: Pain 1459 (Given - Provid er: Caitlyn Bird RN) Continuous Medication Order 04/17/2022 04/18/2022 04/19/2022 Lactated Ringer's (LR) infusion 30 mL/hr, intravenous, Continuous, Starting on Stephanie 04/19/22 at 0615, Pre-Op, 0652 (New Bag - Prov ider: Danielle Genao RN)0724 (Rate/Dose Verify - Provider: Sheryl Magana CRNA)0850 (New Bag - Provider: Sheryl Magana CRNA)1145 (New Bag - Provider: Sheryl Magana CRNA) Lactated Ringer's (LR) infusion 125 mL/hr, intravenous, Continuous, Starting on Stephanie 04/19/22 at 1330, Phase I, If on NS, continue with normal saline at 125 ml/hr 1330 (Due) PRN Medication Order 04/17/2022 04/18/2022 04/19/2022 bupivacaine (MARCAINE) 0.25 % (2.5 mg/mL) preservative free injection (CANCELED) As needed, Starting on Stephanie 04/19/22 at 1001, Intra-Op 1000 (Given - Provid er: Oliver Leigh DO) Carrier Fluids for Secondary Infusion - 0.9% Sodium Chloride 30 mL, intravenous, As needed, For priming tubing and/or flushing, Starting on Stephanie 04/19/22 at 0543, Pre-Op, 0-250 ml/hr to flush line after IV infusions when no maintenance IV ordered. Infuse 30mL at the same rate as the secondary infusion. Run as primary IV, not intended for KVO. ceFAZolin (ANCEF) 1,000 mg, gentamicin (GARAMYCIN) 80 mg in sodium chloride 0.9% 1,000 mL irrigation solution (CANCELED) As needed, Starting on Stephanie 04/19/22 at 1100, Intra-Op 1100 (Given - Provid er: Oliver Leigh DO) fentaNYL (SUBLIMAZE) preservative free injection 50 mcg 50 mcg, intravenous, Once as needed, breakthrough pain, Starting on Stephanie 04/19/22 at 1249, For 1 dose, Phase I, Administer for uncontrolled or increasing pain while in PACU only. Then proceed to PACU 1st line analgesic., Indications: Pain 1251 (Due) HYDROmorphone (DILAUDID) injection 0.2 mg 0.2 mg, intravenous, Administer over 2 Minutes, Every 10 min PRN, 1st line for pain, Starting on Stephanie 04/19/22 at 1249, Phase I, Switch to 2nd line analgesic order if pain is uncontrolled or increasing after 2 doses. Notify Anesthesiologist if total PACU dose reaches 2 mg and pain score 5/10 or more., Indications: Pain HYDROmorphone (DILAUDID) injection 0.4 mg 0.4 mg, intravenous, Administer over 2 Minutes, Every 10 min PRN, 2nd line for pain, Starting on Stephanie 04/19/22 at 1249, Phase I, May administer 10 mintes after 2nd dose of 1st line analgesic agent for uncontrolled or increasing pain. Revert to 1st line dose if POSS of 3. Notify Anesthesiologist if total PACU dose reaches 2 mg and pain score 5/10 or more., Indications: Pain 1321 (Given - Provid er: Alexandre Fraser RN)1348 (Given - Provider: Nicci Alejandro RN) lidocaine-EPINEPHrine (XYLOCAINE with EPI) 1 %-1:100,000 20 mL, EPINEPHrine (ADRENALIN) 1 mg in Lactated Ringer's (LR) 1,000 mL solution (CANCELED) As needed, Starting on Stephanie 04/19/22 at 0808, Intra-Op 0808 (Given - Provid er: Oliver Leigh DO) lidocaine-EPINEPHrine (XYLOCAINE with EPI) 1 %-1:100,000 20 mL, EPINEPHrine (ADRENALIN) 1 mg in Lactated Ringer's (LR) 1,000 mL solution (CANCELED) As needed, Starting on Stephanie 04/19/22 at 0810, Intra-Op 0810 (Given - Provid er: Oliver Leigh DO) lidocaine-EPINEPHrine (XYLOCAINE with EPI) 1 %-1:100,000 20 mL, EPINEPHrine (ADRENALIN) 1 mg in Lactated Ringer's (LR) 1,000 mL solution (CANCELED) As needed, Starting on Stephanie 04/19/22 at 0811, Intra-Op 0811 (Given - Provid er: Oliver Leigh DO) lidocaine-EPINEPHrine (XYLOCAINE with EPI) 1 %-1:100,000 injection (CANCELED) As needed, Starting on Stephanie 04/19/22 at 1000, Intra-Op, Indications: Administration of Local Anesthesia 1000 (Given - Provid er: Oliver Leigh DO) meperidine (DEMEROL) preservative free injection 12.5 mg 12.5 mg, intravenous, Administer over 5 Minutes, Every 10 min PRN, shivering, Starting on Stephanie 04/19/22 at 1249, For 2 doses, Phase I, Max cumulative dose 25 mg., Indications: Shivering metoclopramide (REGLAN) injection 10 mg 10 mg, intravenous, Administer over 1 Minutes, Once as needed, nausea, vomiting, Starting on Stephanie 04/19/22 at 1249, For 1 dose, Phase I, If nausea/vomiting not relieved by ondansetron within 30 minutes or if ondansetron has been given within the last 6 hours. naloxone (NARCAN) 0.4 mg/mL injection 0.04-0.4 mg 0.04-0.4 mg, intravenous, Once as needed, other, excessive sedation/respiratory depression, Starting on Stephanie 04/19/22 at 1249, For 1 dose, Phase I, Dilute 0.4 mg with 9 mL NS (final concentration 0.04 mg/mL). For respiratory depression (respiratory rate less than 6), administer 0.4 mg IVP over 30 seconds. For excessive sedation administer 0.04 mg (1 mL) every 1 minute until desired level of alertness. For IV, administer over 30 seconds., Indications: Opioid Toxicity ondansetron (ZOFRAN) injection 4 mg 4 mg, intravenous, Administer over 2 Minutes, Once as needed, nausea, vomiting, Starting on Stephanie 04/19/22 at 1249, For 1 dose, Phase I, Proceed to metoclopramide if ondansetron has been given within the last 6 hours. sodium chloride 0.9% flush 0.5-20 mL 0.5-20 mL, intra-catheter, As needed, line care, Starting on Stephanie 04/19/22 at 0543, Pre-Op, Flush volume based on line type and size. Flush before and after each use. documented in this encounter Orders Medications Ordered That Guy ht Not Have Been Administered Count Last Ordered Date First Ordered Date Carrier Fluids for Secondary Infusion - 0.9% Sodium Chloride 1 04/19/2022 ceFAZolin (ANCEF) 2,000 mg/2 0 mL in sterile water (premix) 2,000 mg 1 04/19/2022 fentaNYL (SUBLIMAZE) preserv ative free injection 50 mcg 1 04/19/2022 HYDROmorphone (DILAUDID) injection 0.2 mg 1 04/19/2022 Lactated Ringer's (LR) infusion 1 meperidine (DEMEROL) preserv ative free injection 12.5 mg 1 04/19/2022 metoclopramide (REGLAN) injection 10 mg 1 0 04/19/2022 naloxone (NARCAN) 0.4 mg/mL injection 0.04-0.4 mg 1 04/19/2022 ondansetron (ZOFRAN) injection 4 mg 1 04/19 sodium chloride 0.9% flush 0.5-20 mL 1 03/24 Discharge Count Last Ordered Date First Orde red Date DISCHARGE PATIENT 1 04/19/2022 documented in this encounter Care Teams Superintendent Pipelines Relationship Specialty Start Date End Date Ana Boyer NP [address] [place] [address] PCP - General Nurse Practitioner 04/19/22 documented as of this encounter
--- OUTSIDE RECORDS SUMMARY | 2024-09-19 04:57 | XMS_ITS | Encounter Summary ---
Author Organization [facility] Healthcare Address [address] [place] [address] Care Team Providers Care Electronic Scale Tester Name Role Phone Ana Boyer NP Primary Care Provider [phone] Encounter Details Date Type Department Care Team (Latest Contact Info) Description 04/19/2022 5:42 AM CDT - 04/19/2022 4:30 PM CDT Hospital Encounter [facility] [place] [address] [place] [id number] Oilver Leigh, DO [address] [id number] Discharge Disposition: Discharge to home or self care Social History Tobacco Use Types Packs/Day Years [...] on file 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 * General Anesthesia (Discharge Care) (Gambian) * Abdominoplasty (Discharge Care) (Gambian) * Liposuction (Discharge Care) (Gambian) documented in this encounter Medications at Time of Discharge busPIRone (BUSPAR) 5 mg tabletIndications:G eneralized Anxiety Disorder Take 5 mg by mouth 3 (three) times a day Nightly PRN CALCIUM CITRATE ORALIndications:gas tric bypass Take 1,200 mg by mouth daily cefadroxil (DURICEF) 500 mg capsule Take 1 capsule (500 mg total) by mouth 2 (two) times a day 14 capsule cetirizine (ZyrTEC) 10 mg tablet Take 10 [...] DO - 04/19/2022 7:14 AM CDT Neida Acosta 51 y.o. female Date of Service [...] Surgical History: Procedure Laterality Date ??? CHOLECYSTECTOMY 2015 ??? ORAL SURGERY oropharyngeal surgery for DANIELLE, [...] 0.9% Sodium Chloride 30 mL intravenous PRN Trevor Rae, DO ??? ceFAZolin (ANCEF) 2,000 mg/20 mL in sterile water (premix) 2,000 mg 2,000 mg intravenous Once Oliver Leigh, DO ??? Lactated Ringer's (LR) infusion 30 mL/hr intravenous Continuous Trevor Rae DO 30 mL/hr at 04/19/22 0700 Rate [...] Role: * Oliver Leigh DO - Primary Jboss Architect: Anu Mekes RN; Amber Veras RN Jboss Architect Relief: Lucia Oliveira RN Scrub: Sophie Russell RN PICKER TENDER HELPER: Rossana Ivan CRNFA ANESTHESIA: Anesthesiologist: Tin Gil MD INVESTIGATIONS MANAGER: Sheryl Magana CRNA General PREOPERATIVE DIAGNOSIS: Lower [...] had proper capillary refill. Was brought into position and secured in a multilayer fashion using 4-0 [...] Discharge from the operating room was stable Olvier Leigh DO Date: 04/19/2022 Time: 12:25 PM * Pre-Procedure Instructions - Monica Connor RN - 04/13/2022 9:45 AM CDT Pre-Procedure Instructions We are pleased that you and your doctor have chosen [facility] for your surgery. We hope that the following information will help make your visit a pleasant one. Surgery Date: 04/19/2022 Arrival Time 05:20AM : Please arrive at [address] [address] Please park in the first parking lot on left side of driveway. Enter through front door. ([address] with flagpoles) Before your surgery: ?? [...] these items. ?? Use no make-up, nail arabic, lotions, oils or powders on your skin. [...] of germs on the skin. You may picker and sorter load and unload a bottle of this soap from the desktop publishing associate at [facility] for no charge or at your expense [...] immediately and call your physician or the [place] [facility] ( ) right away [...] 2 maximum and the preference is 1. [employer] has limited food and drink options due [...] please call us. We can be reached [phone] documented in this encounter Plan of Treatment [...] POC 0.70 0.60 - 1.10 mg/dL EMPERATRIZ SERRA Comment:Testing performed by : [address] [address] Blood 04/19/2022 6:43 AM CDT 04/19/2022 6:43 AM CDT Oliver Leigh DO POINT OF CARE TEST ORDERABLES F inal Result EMPERATRIZ [facility] [address] [facility] Department [place] [address] * (ABNORMAL) POC Blood Gas and Chemistries, Venous - (04/19/2022 6:36 AM CDT) pH,flores POC 7.39 7.32 - 7.43 EMPERATRIZ SERRA Comment:Testing performed by : [address] [place]., [address] pCO2, flores POC 39(L) 40 - 50 mmHg EMPERATRIZ Comment:Testing performed by : [address] [address] pO2,flores POC 35 mmHg [facility] Comment: Interpretive Data No reference range established. Current interpretive data was last revised 2020. Testing performed by: [address] [address] HCO3, flores (Calc) POC 24 20 - 30 mmol/L [facility] Comment:Testing performed by : [address] [address] Base excess, flores POC -1 mmol/L EMPERATRIZ Comment: Interpretive Data No reference range established. Current interpretive data was last revised 2020. Testing performed by: [address] [address] Hemoglobin, flores POC 13.3 11.9 - 15.5 g/dL EMPERATRIZ Comment:Testing performed by : [address] [address] Hematocrit, flores POC 39.0 35.6 - 45.5 % [facility] Comment:Testing performed by : [address] [address] Sodium, flores POC 141 135 - 145 mmol/L [facility] Comment:Testing performed by : [address] [address] Potassium, flores POC 3.2(L) 3.3 - 4.9 mmol/L EMPERATRIZ Comment: Interpretive Data Unable to assess hemolysis, Invitro hemolysis causes falsely elevated potassium. Current interpretive data was last revised on 2020. Testing performed by: [address] [address] Glucose, flores POC 94 70 - 199 mg/dL EMPERATRIZ Comment:Testing performed by : [address] [address] Ionized Calcium, flores POC 4.80 4.50 - 5.20 mg/dL EMPERATRIZ Comment:Testing performed by : [address] [address] Blood 04/19/2022 6:36 AM CDT 04/19/2022 6:36 AM CDT Oliver Leigh DO LAB POCT ORDERABLES - DEVICE Fi nal Result Performing Organization Address City/[facility]/ZIP Co de Phone Number EMPERATRIZ [facility] Department [place] [address] * ECG 12 lead (04/19/2022 6:24 AM CDT) Pathologist [facility] Ventricular Rate EKG/Min 65 BPM [facility] Atrial Rate 65 BPM [facility] [place]-Interval (MSEC) 190 ms [facility] QRS-Interval (MSEC) 88 ms [facility] QT-Interval (MSEC) 422 ms [facility] QTc 438 ms [facility] [place] 25 degrees [facility] R [place] 28 degrees [facility] T [place] 35 degrees [facility] Diagnosis Normal sinus rhythm Normal ECG When compared with ECG of 02-FEB-2016 10:18, No significant change was found [facility] 04/19/2022 6:24 AM CDT 04/19/2022 5:20 PM CDT Trevor Rae DO ECG ORDERABLES Kaitlin l Result Performing Organization Address [facility] Co de Phone Number [facility] documented in this encounter Visit Diagnoses Not on filedocumented in this encounter Administered Medications Inactive Administered Medications - up to 3 most recent administrations Medication Order MAR Action Action Date Dose Rate Site acetaminophen (TYLENOL) tablet 975 mg 975 mg, oral, Once, On Stephanie 04/19/22 at 0615, For 1 dose, Pre-Op, Indications: Pre-Emptive AnalgesiaIndications:Pre-Emptive Analgesia Given 04/19/2022 6:52 AM CDT 975 mg famotidine (PEPCID) tablet 20 mg 20 mg, [...] 04/19/2022 7:24 AM CDT 30 mL/h r meclizine (ANTIVERT) tablet 25 mg 25 mg, [...] minutes pre-op, Indications: Prevention of Motion Sickness 0652 (Given - Provid er: Danielle Genao [...] Count Last Ordered Date First Ordered Date bupivacaine (MARCAINE) 0.25 % (2.5 mg/mL) preservative free injection 1 04/19/2022 Carrier Fluids for Secondary Infusion - 0.9% Sodium Chloride 1 04/19/2022 ceFAZolin (ANCEF) 1,000 mg, gentamicin (GARAMYCIN) 80 mg in sodium chloride 0.9% 1,000 mL irrigation solution 1 04/19/2022 ceFAZolin (ANCEF) 2,000 mg/2 0 mL in sterile water (premix) 2,000 mg 1 04/19/2022 fentaNYL (SUBLIMAZE) preserv ative free injection 50 mcg 1 04/19/2022 HYDROmorphone (DILAUDID) injection 0.2 mg 1 04/19/2022 Lactated Ringer's (LR) infusion 1 lidocaine-EPINEPHrine (XYLOC KESHAWN with EPI) 1 %-1:100,000 20 mL, EPINEPHrine (ADRENALIN) 1 mg in Lactated Ringer's (LR) 1,000 mL solution 3 04/19/2022 lidocaine-EPINEPHrine (XYLOC KESHAWN with EPI) 1 %-1:100,000 injection 1 04/19/2022 meperidine (DEMEROL) preserv ative free injection 12.5 mg 1 04/19/2022 metoclopramide (REGLAN) injection 10 mg 1 0 04/19/2022 naloxone (NARCAN) 0.4 mg/mL injection 0.04-0.4 mg 1 04/19/2022 ondansetron (ZOFRAN) injection 4 mg 1 04/19 sodium chloride 0.9% flush 0.5-20 mL 03/24 Discharge Count Last Ordered Date First Orde red Date DISCHARGE PATIENT 1 04/19/2022 documented in this encounter Care Teams Electronic Scale Tester Relationship Specialty Start Date End Date Ana Boyer NP [address] [place] [id number] PCP - General Nurse Practitioner 04/19/22 documented as of this encounter
--- OUTSIDE RECORDS SUMMARY | 2024-09-19 04:57 | XMS_ITS | Encounter Summary ---
Author Organization [facility] Healthcare Address [address] [place] [address] Care Team Providers Care Sales Teacher Name Role Phone Unavailable Primary Care Provider Unavailabl e Encounter Details Date Type Department Care Team (Latest Contact Info) Description 01/06/2013 10:06 AM CDT - 01/06/2013 11:42 AM CDT Hospital Encounter [facility] Conrad Hernandez, DO [address] [place], [place] [id number] Elevated blood-pressure reading without diagnosis of hypertension; Alcohol abuse Social History Tobacco Use Types Packs/Day Years Used Date Smoking Tobacco: Never Assessed Comments Unknown Sex and Gender Information Value Date Recorded Sex Assigned at Not on file 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 Gender Identity Not on file Sexual Orientation Not on file documented as of this encounter Last Filed Vital Signs Vital Sign Reading Time Taken Comments Blood Pressure 125/62 01/06/2013 10:08 AM CDT Pulse 84 01/06/2013 10:08 AM CDT Temperature 37.4 ??C (99.4 ??F) 01/06/2013 1 0:08 AM CDT Respiratory Rate - - Oxygen Saturation 99% 01/06/2013 10: 08 AM CDT Inhaled Oxygen Concentration - - Weight 101.8 kg (224 lb 6.9 oz) 013 10:08 AM CDT Height 165.1 cm (5' 5 ) 01/06/2013 10:0 8 AM CDT Body Mass Index 37.35 01/06/2013 10:08 AM CDT documented in this encounter Plan of Treatment Not on file documented as of this encounter Visit Diagnoses Diagnosis Elevated blood-pressure reading without diagnosis of hypertension Elevated blood pressure reading without diagnosis of hypertension Alcohol abuse Nondependent alcohol abuse, unspecified drinking behavior documented in this encounter
--- OUTSIDE RECORDS SUMMARY | 2024-09-19 04:57 | XMS_ITS | Encounter Summary ---
Author Organization [facility] Address [address] [place] [address] Care Team Providers Care Comber Tender Name Role Phone Ana Boyer NP Primary Care Provider [phone] Encounter Details Date Type Department Care Team (Late st Contact Info) Description 04/19/2022 7:24 AM CDT Anesthesia Event [facility] OR [address] [place] [id number] Tin Gil MD [address] [facility] [address] [place] [address] Trevor Rae DO [address] [place] [address] Anesthesia Record Procedure Summary Procedure Name Responsible Anesthesiologist Anesthesia Start Time Anesthesia Stop Time ABDOMINOPLASTY (Abdomen) Tin Gil MD 04/19/22 0724 04/19/22 1241 Events Date Time Event Comment 04/19/2022 0716 0724 An Start 0726 An Start Data 0726 In Room 0728 An Induction The patient was reevaluated immediately before moderate or deep sedation use and before anesthesia induction. 0731 An Intubation 0735 Anesthesia Ready 0802 Proc Start 1214 An Extubation 1224 Proc Fin 1229 an stop data 1237 Out of Room 1240 Handoff to RN I completed my handoff to the receiving nurse during which we: 1. Patient identified 2. Responsible provider identified 3. Pertinent medical history reviewed 4. Procedure type and surgical course discussed 5. Intraoperative anesthetic management and any significant issues discussed 6. Expectations and concerns for postop period discussed 7. Questions solicited from receiving nurse 8. Patient disposition at the time of handoff: PACU 1241 An Stop Meds Name Total midazolam 1 mg/mL 2 mg propofol 150 mg lidocaine (cardiac) syringe 2 % 2 mL fentaNYL 50 mcg/mL PF 100 mcg rocuronium 30 mg ondansetron PF 4 mg dexAMETHasone 4 mg/mL 4 mg ceFAZolin (ANCEF) 2,000 mg/20 mL in ster ile water (premix) 2,000 mg 4,000 mg diphenhydrAMINE 25 mg HYDROmorphone 2 mg/mL 2 mg Lactated Ringer's (LR) infusion 2,000 mL * Agents Name O2% N2O O2 N2O Air Sevoflurane Inspired Sevoflurane * Blood No blood administrations on file. Lines, Drains, and Airways Type Details Placement Removal Closed/Suction/Open Drain 04/19/22; 1059; No; 1; Right; RLQ; Bulb; 15 Fr.; (secured with sutures) 04/19/22 1059 by Amber Veras RN Closed/Suction/Open Drain 04/19/22; 1102; No; 2; Left; LLQ; Bulb; 15 Fr.; (secured with sutures) 04/19/22 1102 by Amber Veras RN Peripheral IV Placement Date: 04/19/22; Placement Time: 0645; Catheter Size: 20 G; Orientation: Left; Location: Antecubital; Site Prep: Chlorhexidine; Technique: Anatomical landmarks; Insertion Attempts: 1; Patient Tolerance: Tolerated well; Removal Date: 04/19/22; Removal Time: 1620 04/19/22 0645 by Danielle Genao RN 04/19/22 1620 by Caitlyn Bird RN Urethral Catheter Placement Date: 04/19/22; Placement Time: 0735; Inserted by: Dinora Nicholas RN; Type: Latex; Balloon Size: 10 mL; Urine Returned: Yes; Removal Date: 04/19/22; Removal Time: 1224; Removal Reason: Disontinued in OR 04/19/22 0735 by Amber Veras RN 04/19/22 1224 by Amber Veras RN ETT Placement Date: 04/19/22; Placement Time: 737 (created via procedure documentation); Mask Ventilation: 1; Technique: Direct laryngoscopy; Type: ETT - single; Single Lumen Tube Size: 7 mm; Cuffed: Yes; Laryngoscope: Kathy; Blade Size: 3; Location: Oral; Grade View: Grade I; Insertion Attempts: 1; Placement Verification: Auscultation, Capnometry; Removal Date: 04/19/22; Removal Time: 1214 04/19/22 0738 by Sheryl Spann CRNA 04/19/22 1214 by Sheryl Spann CRNA RETIRED Surgical Site 04/19/22; 1123; Abdomen; 08/25/24 (Retired LDA, Removed/Completed by Palingen with LDA Utility); 121 (Retired LDA, Removed/Completed by Palingen with LDA Utility) 04/19/22 1123 by Anu Meeks RN 08/25/24 1213 by Discharge Provider, Automatic documented in this encounter Social History Tobacco [...] on file 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 Gender Identity Not on file Sexual Orientation Not on file documented as of this encounter OR Notes * Anesthesia Postprocedure Evaluation - Lee Schroeder MD - 04/19/2022 2:10 PM CDT Patient: Neida Acosta Procedure Summary Date: 04/19/22 Room / Location: [facility] OPERATING [facility]OM 03 / [facility] Anesthesia Start: 723 Anesthesia Stop: 124 Procedures: ABDOMINOPLASTY (N/A Abdomen) LIPOSUCTION TO BILATERAL FLANKS (Bilateral ) Diagnosis: (COSMETIC) Surgeons: Oliver Leigh DO Responsible Provider: Tin Gil MD Anesthesia Type: general ASA Status: 2 Anesthesia Type: general Last vitals BP 159/96 (BP Location: Right arm, Patient Position: HOB 30 degrees) Pulse 71 Temp 36.2 ??C (97.1 ??F) (Temporal) Resp 16 SpO2 100% Anesthesia Post Evaluation Patient location during evaluation: PACU Patient participation: complete - patient participated Level of consciousness: fully awake Pain score: 3 Pain management: adequate Airway patency: adequate Evidence of recall: no Cardiovascular status: acceptable Respiratory status: acceptable Hydration status: acceptable Pt is: normothermic Nausea/Vomiting status: none No complications documented. * Anesthesia Procedure Notes - Sheryl Magana CRNA - 04/19/2022 7:38 AM CDTAssociated Order(s): Airway Airway Patient location: OR Urgency: elective Indications for airway management: anesthesia Difficult airway: no Staff: Placed by: PICKER / PACKER: Sheryl Magana CRNA Emergent airway documentation: Risks and benefits discussed: yes Consent obtained: yes Consent given by: patient Airway prep: Preoxygenated: yes Patient position: sniffing MILS maintained throughout: yes Mask difficulty assessment: 1 - vent by mask Spontaneous ventilation during airway: absent Sedation level during airway: GA Final airway details: Final airway type: endotracheal airway Tube type: ETT ETT size: 7.0 mm Cuffed: yes Technique used for successful ETT placement: direct laryngoscopy Devices/Methods used in placement: intubating stylet Insertion site: oral Blade type: Kathy Blade size: 3 Cormack-Lehane (direct): grade I - full view of glottis Cuff volume: 5 mL Cuff inflated with: air ETT to teeth: 21 cm Placement verified by: auscultation and CO2 detection Airway secured with: prone view tape Number of attempts: 1 * Anesthesia Preprocedure Evaluation - Tin Gil MD - 04/19/2022 6:57 AM CDT Images from the original note were not included. Anesthesia Evaluation Neida Acosta is a 51 y.o. female Procedure(s): ABDOMINOPLASTY LIPOSUCTION TO BILATERAL FLANKS * No Diagnosis Codes entered * HISTORY Past Medical History Information obtained from: patient and chart. Neurological Pertinent negatives: seizures; CVA/stroke and TIA Cardiovascular Pertinent negatives: hypertension ; [place] ; negative for CHF and hyperlipidemia Dysrhythmia - non-specific: Hx vasovagal syncope, hx of palpitations not recent. Respiratory Pertinent negatives: COPD; asthma; sleep apnea (DANIELLE) and non-smoker Hepatic / Heme Pertinent negatives: liver disease Gastrointestinal Pertinent negatives: GERD Renal / Pertinent negatives: renal disease Endocrine / Other Pertinent negatives: diabetes mellitus; thyroid disease and obesity (BMI >30) Functional Capacity Functional capacity: 4-6 METs Day of Surgery assessments + Possibility of assessed (Post-menopausal) - ruled out by patient's provided history. COVID Vaccine istat noted - K+ 3.2 noted ekg NSR 65 WNL Meclizine ordered Hx ETOH abuse Patient Active Problem List Diagnosis ??? History of alcohol abuse ??? Vasovagal syncope ??? Adiposity ??? Palpitations Past Medical History: Diagnosis Date ??? HX OTHER MEDICAL tubal ligation ??? HX OTHER MEDICAL gastric bypass surgery in 2009 ??? Vertigo 04/12/2022 occasional Past Surgical History: Procedure Laterality Date ??? CHOLECYSTECTOMY 2015 ??? ORAL SURGERY oropharyngeal surgery for DANIELLE, unknown name of procedure ??? SINUS SURGERY ??? TONSILLECTOMY Tonsillectomy ??? URETER SURGERY 1975 OB History No obstetric history on file. Allergies Allergen Reactions ??? Codeine Itching Liquid codeine, codeine #3 caused no itching ??? Tramadol Vomiting Med List Status: Nurse Complete Set By: Monica Connor RN at 04/13/2022 9:10 AM Taking? Last Dose Start Date End Date Provider busPIRone (BUSPAR) 5 mg tablet 04/12/2022 -- -- Prabhjot Ascencio MD CALCIUM CITRATE ORAL 04/13/2022 -- -- Prabhjot Ascencio MD cholecalciferol (VITAMIN D-3) 5,000 unit tablet 04/13/2022 -- -- Prabhjot Ascencio MD cyanocobalamin (Vitamin B-12) 1,000 mcg tablet 04/13/2022 -- -- Prabhjot Ascencio MD cyclobenzaprine (FLEXERIL) 10 mg tablet 04/12/2022 -- -- Prabhjot Ascencio MD LORazepam (ATIVAN) 1 mg tablet 04/12/2022 03/22/22 -- Prabhjot Ascencio MD multivitamin capsule 04/13/2022 -- -- Prabhjot Ascencio MD No current facility-administered medications for this encounter. Current Outpatient Medications: ??? busPIRone (BUSPAR) 5 mg tablet ??? CALCIUM CITRATE ORAL ??? cholecalciferol (VITAMIN D-3) 5,000 unit tablet ??? cyanocobalamin (Vitamin B-12) 1,000 mcg tablet ??? cyclobenzaprine (FLEXERIL) 10 mg tablet ??? LORazepam (ATIVAN) 1 mg tablet ??? multivitamin capsule Social History Tobacco Use Smoking Status Former Smoker ??? Types: Cigarettes ??? Quit date: 2020 ??? Years since quittin.5 Smokeless Tobacco Not on file Alcohol Use: Not At Risk ??? Frequency of Alcohol Consumption: Never ??? Average Number of Drinks: Not on file ??? Frequency of Binge Drinking: Not on file Substance and Sexual Activity Drug Use Yes ??? Frequency: 2.0 times per week ??? Types: Marijuana Family History Problem Relation Age of Onset ??? Other Mother Alive and well; ??? Other Father Alive and well; ??? Other Brother Alive and well; COVID Vaccine istat ekg hcg There were no vitals filed for this visit. PT: No results found for requested labs within last 720 hours. INR: No results found for requested labs within last 720 hours. APTT: No results found for requested labs within last 720 hours. Hgb A1C: No results found for requested labs within last 720 hours. CBC RBC: No results found for requested labs within last 720 hours. RDW: No results found for requested labs within last 720 hours. MCHC: No results found for requested labs within last 720 hours. MCH: No results found for requested labs within last 720 hours. MCV: No results found for requested labs within last 720 hours. Hct: No results found for requested labs within last 720 hours. Hgb: No results found for requested labs within last 720 hours. WBC: No results found for requested labs within last 720 hours. MPV: No results found for requested labs within last 720 hours. Platelets: No results found for requested labs within last 720 hours. RDW CV: No results found for requested labs within last 720 hours. RDW Sd: No results found for requested labs within last 720 hours. BMP Glucose: No results found for requested labs within last 720 hours. Calcium: No results found for requested labs within last 720 hours. Sodium: No results found for requested labs within last 720 hours. Potassium: No results found for requested labs within last 720 hours. CO2: No results found for requested labs within last 720 hours. Chloride: No results found for requested labs within last 720 hours. BUN: No results found for requested labs within last 720 hours. Creatinine: No results found for requested labs within last 720 hours. STOP-Bang Total Score: 1 DOS Physical Exam Medical history, medications, and allergies reviewed. Attestation: This PAT evaluation 04/19/2022. Airway Exam: Mallampati: II Cervical ROM: FROM Cardiovascular Exam: Rate: regular Rhythm: regular Negative for Murmur JVD negative Pulmonary Exam: LCTA, bilat Coarse breath sounds negative Crackles negative Basilar Crackles negative Rhonchi negative EENT Exam: trachea midline Skin Exam: Skin is warm. Current state: Patient's current state is cooperative and interactive. Anesthesia Plan ASA 2 My patient is approved for the Anesthesia Controlled Medication protocol when under care of a PICKER / PACKER Planned anesthesia: General Team communication plan: oral ET tube Induction: Induction: intravenous. Postoperative Plan: Postoperative administration opioids intended. Patient's planned disposition post procedure is Outpatient. Informed Consent: Discussed plan with PICKER / PACKER. Anesthesia plan and risks discussed with patient. Consent and Attending signature: I and/or my designee have discussed the anesthesia plan, benefits, possible alternatives, parental presence at time of induction (if indicated), and clinically relevant risks that may include dental injury, unintentional awareness, and/or other complications. The patient and/or parent/legal guardian understand, and agree to proceed. All questions answered. documented in this encounter Plan of Treatment Not on file documented as of this encounter Procedures Procedure Name Priority Date/Time Associated Diagnosis Comments MT AN PROCEDURE PLACEHOLDER Routine 04/19/2022 7:38 AM CDT MT AN ELECTIVE ENDOTRACHEAL AIRWAY Routine 04/19/2022 7:38 AM CDT documented in this encounter Results * MT AN ELECTIVE ENDOTRACHEAL AIRWAY, MT AN PROCEDURE PLACEHOLDER (04/19/2022 7:38 AM CDT) Narrative Sheryl Magana CRNA - 04/19/2022 7:38 AM CDT Sheryl Magana CRNA ? 04/19/2022 ??7:38 AM Airway Patient location: OR Urgency: elective Indications for airway management: anesthesia Difficult airway: no Staff: Placed by: PICKER / PACKER: Sheryl Magana CRNA Emergent airway documentation: Risks and benefits discussed: yes Consent obtained: yes Consent given by: patient Airway prep: Preoxygenated: yes Patient position: sniffing MILS maintained throughout: yes Mask difficulty assessment: 1 - vent by mask Spontaneous ventilation during airway: absent Sedation level during airway: GA Final airway details: Final airway type: endotracheal airway Tube type: ETT ETT size: 7.0 mm Cuffed: yes Technique used for successful ETT placement: direct laryngoscopy Devices/Methods used in placement: intubating stylet Insertion site: oral Blade type: Kathy Blade size: 3 Cormack-Lehane (direct): grade I - full view of glottis Cuff volume: 5 mL Cuff inflated with: air ETT to teeth: 21 cm Placement verified by: auscultation and CO2 detection Airway secured with: prone view tape Number of attempts: 1 us Tin Gil MD ANESTHESIA ORDERABLES Kaitlin l Result documented in this encounter Visit Diagnoses Not on filedocumented in this encounter Administered Medications Inactive Administered Medications - up to 3 most recent administrations Medication Order MAR Action Action Date Dose Rate Site ceFAZolin (ANCEF) 2,000 mg/20 mL in sterile water (premix) 2,000 mg 2,000 mg, intravenous, at 400 mL/hr, Administer over 3 Minutes, Once, On Stephanie 04/19/22 at 0615, For 1 dose, Pre-Op, Indications: Prophylaxis, SurgicalIndications:Prophylaxis , Surgical Given 04/19/2022 11:26 AM CDT 2,000 mg Given 04/19/2022 7:36 AM CDT 2,000 mg dexAMETHasone (DECADRON) 4 mg/mL injection intravenous, Administer over 2 Minutes, As needed, Starting on Stephanie 04/19/22 at 0736, Anesthesia Intra-op Given 04/19/2022 7:36 AM CDT 4 mg diphenhydrAMINE (BENADRYL) injection intravenous, Administer over 2 Minutes, As needed, Starting on Stephanie 04/19/22 at 0735, Anesthesia Intra-op Given 04/19/2022 7:35 AM CDT 25 mg fentaNYL (SUBLIMAZE) preservative free injection intravenous, As needed, Starting on Stephanie 04/19/22 at 0724, Anesthesia Intra-op Given 04/19/2022 7:24 AM CDT 100 mcg HYDROmorphone (DILAUDID) injection intravenous, Administer over 2 Minutes, As needed, Starting on Stephanie 04/19/22 at 0840, Anesthesia Intra-op Given 04/19/2022 8:59 AM CDT 1 mg Given 04/19/2022 8:51 AM CDT 0.6 mg Given 04/19/2022 8:47 AM CDT 0.2 mg Lactated Ringer's (LR) infusion 30 mL/hr, intravenous, Continuous, Starting on Stephanie 04/19/22 at 0615, Pre-Op, New Bag 04/19/2022 11:45 AM CDT 30 mL/hr New Bag 04/19/2022 8:50 AM CDT 30 mL/hr Rate/Dose Verify 04/19/2022 7:24 AM CDT 30 mL/h r lidocaine (cardiac) (XYLOCAINE) preservative free injection intravenous, As needed, Starting on Stephanie 04/19/22 at 0728, Anesthesia Intra-op, Indications: Ventricular ArrhythmiasIndications:Ventricular Arrhythmias Given 04/19/2022 7:28 AM CDT 2 mL midazolam (VERSED) 1 mg/mL injection intravenous, As needed, Starting on Stephanie 04/19/22 at 0724, Anesthesia Intra-op Given 04/19/2022 7:24 AM CDT 2 mg ondansetron (ZOFRAN) injection intravenous, Administer over 2 Minutes, As needed, Starting on Stephanie 04/19/22 at 0736, Anesthesia Intra-op Given 04/19/2022 7:36 AM CDT 4 mg propofoL (DIPRIVAN) 10 mg/mL IV intravenous, As needed, Starting on Stephanie 04/19/22 at 0728, Anesthesia Intra-op Given 04/19/2022 7:28 AM CDT 150 mg rocuronium (ZEMURON) injection intravenous, As needed, Starting on Stephanie 04/19/22 at 0728, Anesthesia Intra-op Given 04/19/2022 7:28 AM CDT 30 mg documented in this encounter Care Teams Comber Tender Relationship Specialty Start Date End Date Ana Boyer NP [address] [place] [id number] PCP - General Nurse Practitioner 04/19/22 documented as of this encounter
--- OUTSIDE RECORDS SUMMARY | 2024-09-19 04:57 | XMS_ITS | Encounter Summary ---
Author Organization [facility] Healthcare Address [address] [place] [address] Care Team Providers Care Social Services Assistant Name Role Phone Danial Murillo MD Primary Care Provider [phone] Encounter Details Date Type Department Care Team (Latest Contact Info) Description 03/04/2017 6:41 AM CDT - 03/04/2017 10:07 AM CDT [facility] [address] [place] [address] Strain of muscle, fascia and tendon at neck level, initial encounter; Strain of muscle, fascia and tendon of lower back, initial encounter; Contusion of right front wall of thorax; Pain in left knee; Fall in (into) shower or empty bathtub, initial encounter Social History Tobacco Use Types Packs/Day Years Used Date Smoking Tobacco: Former Alcohol Use Standard Drinks/Week Comments No 0 (1 standard drink = 0.6 oz pur e alcohol) Comments Unknown Sex and Gender Information Value Date Recorded Sex Assigned at Not on file 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 Sex 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 Gender Identity Not on file Sexual Orientation Not on file documented as of this encounter Last Filed Vital Signs Vital Sign Reading Time Taken Comments Blood Pressure 140/96 03/04/2017 6:42 AM CDT Pulse 67 03/04/2017 6:42 AM CDT Temperature 36.8 ??C (98.2 ??F) 03/04/2017 6:42 AM CD T Respiratory Rate - - Oxygen Saturation 98% 03/04/2017 6:42 AM CDT Inhaled Oxygen Concentration - - Weight 94.3 kg (208 lb) 03/04/2017 6:42 AM CDT Height 165.1 cm (5' 5 ) 03/04/2017 6:42 AM CDT Body Mass Index 34.61 03/04/2017 6:42 AM CDT documented in this encounter Plan of Treatment Not on file documented as of this encounter Procedures Procedure Name Priority Date/Time Associated Diagnosis Comments UA WITH CULTURE REFLEX Routine 03/04/2017 7:[address] CERVICAL SPINE WO CONTRAST Routine 03/04/2017 12:[address] HEAD WO CONTRAST Routine 03/04/2017 1 2:00 AM CDT XR KNEE LEFT 1 OR 2 VIEWS Routine 03/04/2017 12:00 AM CDT XR HIP RIGHT 2 OR 3 VIEWS Routine 03/04/2017 12:00 AM CDT XR SPINE LUMBAR 2 OR 3 VIEWS Routine 03/04/2017 12:00 AM CDT XR RIBS RIGHT W PA CHEST Routine 03/04/2017 12:00 AM CDT XR CHEST PA LATERAL 2 VIEWS Routine 03/04/2017 12:00 AM CDT documented in this encounter Results * UA with Culture Reflex (03/04/2017 7:58 AM CDT) Ur Collection Type CLEAN CATCH 03/04/2017 8:17 AM CDT [facility] HISTORICAL RESULTS Ur Culture Indicated? C&S NOT INDICATED 03/04/2017 8:17 AM CDT [facility] HISTORICAL RESULTS Urine Color YELLOW YELLOW 03/04/2017 8:17 AM CDT [facility] HISTORICAL RESULTS Urine Clarity CLEAR CLEAR 03/04/2017 8:17 AM CDT [facility] HISTORICAL RESULTS Urine Glucose (UA) NORMAL NORMAL mg/dL 03/04/2017 8:17 AM CDT [facility] HISTORICAL RESULTS Urine Bilirubin NEGATIVE NEGATIVE mg/dl 03/04/2017 8:17 AM T [facility] HISTORICAL RESULTS Urine Ketones NEGATIVE NEGATIVE mg/dL Ur Specific New Site 1.020 1.005 - 1.025 Urine Blood NEGATIVE NEGATIVE mg/dl Urine pH 5.0 5.0 - 8.0 Urine Protein NEGATIVE NEGATIVE mg/dL Urine Urobilinogen NORMAL NORMAL mg/dL Urine Nitrite NEGATIVE NEGATIVE Ur Leukocyte Esterase NEGATIVE NEGATIVE Jose Maria/ul Ur Microscopic Review Not Indicated 03/04/2017 7:58 AM CDT 03/04/2017 8:13 AM T Narrative [facility] HISTORICAL RESULTS - 03/04/2017 8:17 AM CDT Indication(s) for ordering ? Other - enter in comments ? Pain-pelv/flank/suprapubc us Amara FUENTES LAB URINE ORDERABLES Final Resu lt [facility] HISTORICAL RESULTS * XR Ribs Right W PA Chest 3 or More Views (03/04/2017 12:00 AM CDT) Anatomical Region Laterality Modality Rib, Chest Right Radiographic Daiana ging 03/04/2017 Impressions 03/04/2017 8:03 AM CDT ??No rib fracture. ??Increased density in the right upper azygos lobe. ??This may be due to low lung volumes however repeat PA chest with greater depth of inspiration is suggested, as clinically indicated. THIS IS AN ELECTRONICALLY VERIFIED REPORT 03/04/2017 8:00 AM: ??Patricia Diallo M.D. ?? Patricia Diallo M.D. [place] 08:00 AM 08:00 AM [facility] [EOD] Narrative 03/04/2017 8:03 AM CDT AP chest with detail right ribs HISTORY: ??Fell in shower this morning with injury to right chest. FINDINGS: ??Comparison AP chest is dated 02/02/2016. The heart size is normal. ??There is a right upper lobe azygos lobe and fissure with increased density in this lobe when ??compared to prior AP chest. ??This may be due to ??low lung volumes. ??Consider repeat chest, preferably with PA positioning. The the lungs are expanded bilaterally and appear clear. ??There is no osseous abnormality of the right ribs. Procedure Note Provider, MD Prabhjot - 02/07/2021 AP chest with detail right ribs HISTORY: Fell in shower this morning with injury to right chest. FINDINGS: Comparison AP chest is dated 02/02/2016. The heart size is normal. There is a right upper lobe azygos lobe andfissure with increased density in this lobe when compared to prior AP chest.This may be due to low lung volumes. Consider repeat chest, preferably withPA positioning. The the lungs are expanded bilaterally and appear clear. There is noosseous abnormality of the right ribs. IMPRESSION: No rib fracture. Increased density in the right upper azygos lobe. This may be due to low lung volumes however repeat PA chest with greater depth of inspiration is suggested, as clinically indicated. THIS IS AN ELECTRONICALLY VERIFIED REPORT 03/04/2017 8:00 AM: Patricia Diallo M.D. Patricia Diallo M.D. [place] 08:00 AM 08:00 AM [facility] [EOD] us Amara FUENTES IMG XR PROCEDURES Final Result * XR Spine Lumbar 2 or 3 Views (03/04/2017 12:00 AM CDT) Anatomical Region Laterality Modality Spine N/A Radiographic Daiana ging 03/04/2017 Impressions 03/04/2017 8:00 AM CDT ?? 1. ??Mild lumbar disc degeneration with facet arthropathy. ??No compression fracture or malalignment. THIS IS AN ELECTRONICALLY VERIFIED REPORT 03/04/2017 7:56 AM: ??Kasi Bunn D.O. ?? Tanner WoodsO. :as 07:56 AM 07:56 AM [facility] [EOD] Narrative 03/04/2017 8:00 AM CDT EXAMINATION: ??Lumbar spine, 3 views. HISTORY: ??Fell in shower this morning with back pain. FINDINGS: ??5 non-rib bearing lumbar segments are identified. ??Alignment and curvature is normal. ??There is no compression fracture or spondylolisthesis. ?? Mild disc degeneration is present with mild loss of disc height and osteophytic spurring. ??Mild lower lumbar facet arthropathy. ??No pedicle destruction or paravertebral abnormality. Tubal ligation clips within the pelvis. ??There are several pelvic phleboliths. Soft tissues are unremarkable. Procedure Note Provider, MD Prabhjot - 02/07/2021 EXAMINATION: Lumbar spine, 3 views. HISTORY: Fell in shower this morning with back pain. FINDINGS: 5 non-rib bearing lumbar segments are identified. Alignmentand curvature is normal. There is no compression fracture orspondylolisthesis. Mild disc degeneration is present with mild loss of disc height and osteophytic spurring. Mild lower lumbar facet arthropathy. No pedicle destruction or paravertebral abnormality. Tubal ligation clips within the pelvis. There are several pelvicphleboliths. Soft tissues are unremarkable. IMPRESSION: 1. Mild lumbar disc degeneration with facet arthropathy. No compression fracture or malalignment. THIS IS AN ELECTRONICALLY VERIFIED REPORT 03/04/2017 7:56 AM: Kasi Bunn D.O. Kasi Bunn D.O. :as 07:56 AM 07:56 AM [facility] [EOD] us Amara FUENTES IMG XR PROCEDURES Final Result * CT Head WO Contrast (03/04/2017 12:00 AM CDT) Anatomical Region Laterality Modality Head and Neck N/A Computed Tomogra phy 03/04/2017 Impressions 03/04/2017 8:17 AM CDT ?? 1. No acute intracranial abnormality is identified. Automated exposure control was used as a dose optimization technique for this examination. THIS IS AN ELECTRONICALLY VERIFIED REPORT 03/04/2017 8:13 AM: ??Kasi Bunn D.O. ?? Kasi Bunn D.O. :as 08:13 AM 08:13 AM [facility] [EOD] Narrative 03/04/2017 8:17 AM CDT EXAMINATION: ??CT head without contrast. HISTORY: ??Headache after fall in shower this morning. TECHNIQUE: ??3 mm axial images of the brain were performed without contrast. COMPARISON: ??Most recently 02/02/2016. FINDINGS: ??The ventricles and subarachnoid spaces are normal in size and symmetric. ??There is no mass effect or midline shift. ??No intracranial hemorrhage is observed. ??There is no acute vascular distribution infarction. ?? Orbital contents are normal. ??There is no significant paranasal sinus or mastoid air cell disease. ??The calvarium is intact. Procedure Note Provider, MD Prabhjot - 02/07/2021 EXAMINATION: CT head without contrast. HISTORY: Headache after fall in shower this morning. TECHNIQUE: 3 mm axial images of the brain were performed withoutcontrast. COMPARISON: Most recently 02/02/2016. FINDINGS: The ventricles and subarachnoid spaces are normal in size and symmetric. There is no mass effect or midline shift. No intracranial hemorrhage is observed. There is no acute vascular distributioninfarction. Orbital contents are normal. There is no significant paranasal sinus or mastoid air cell disease. The calvarium is intact. IMPRESSION: 1. No acute intracranial abnormality is identified. Automated exposure control was used as a dose optimization technique forthis examination. THIS IS AN ELECTRONICALLY VERIFIED REPORT 03/04/2017 8:13 AM: Kasi Bunn D.O. Kasi Bunn D.O. :as 08:13 AM 08:13 AM [facility] [EOD] Amara FUENTES IMG CT PROCEDURES Final Result * XR Chest Pa Lateral 2 Views (03/04/2017 12:00 AM CDT) Anatomical Region Laterality Modality Body, Chest N/A Radiographic Daiana ging 03/04/2017 Impressions 03/04/2017 9:34 AM CDT ?? 1. ??No acute cardiopulmonary process. 2. ??Opacity in the right upper lobe correlates with an azygos fissure when compared to cervical spine CT. THIS IS AN ELECTRONICALLY VERIFIED REPORT 03/04/2017 9:30 AM: ??Caleb Perkins M.D. ?? Caleb Perkins M.D. CN:pee Abreu: 03/04/201709:30 AM 09:30 AM [facility] [EOD] Narrative 03/04/2017 9:34 AM CDT EXAMINATION: ??Chest, two-view HISTORY: ??Right chest trauma, onset earlier today after fall, with increased opacity in the right upper lobe on chest radiograph earlier today TECHNIQUE: ??Frontal and lateral views of the chest are obtained COMPARISON: ??Chest radiographs 03/04/2017 and 02/02/2016, cervical spine CT 03/04/2017. FINDINGS: ?? The opacity in the right upper lobe correlates with an azygos fissure when compared to cervical spine CT earlier today. There is no focal consolidation, pneumothorax, or pleural effusion. ??The cardiac silhouette and mediastinal contours are within normal limits. Procedure Note Provider, MD Prabhjot - 02/07/2021 EXAMINATION: Chest, two-view HISTORY: Right chest trauma, onset earlier today after fall, withincreased opacity in the right upper lobe on chest radiograph earlier today TECHNIQUE: Frontal and lateral views of the chest are obtained COMPARISON: Chest radiographs 03/04/2017 and 02/02/2016, cervical spine CT 03/04/2017. FINDINGS: The opacity in the right upper lobe correlates with an azygos fissure when compared to cervical spine CT earlier today. There is no focalconsolidation, pneumothorax, or pleural effusion. The cardiac silhouette and mediastinal contours are within normal limits. IMPRESSION: 1. No acute cardiopulmonary process. 2. Opacity in the right upper lobe correlates with an azygos fissure when compared to cervical spine CT. THIS IS AN ELECTRONICALLY VERIFIED REPORT 03/04/2017 9:30 AM: Caleb Perkins M.D. Caleb Perkins M.D. CN:pee 09:30 AM 09:30 AM [facility] [EOD] Amara FUENTSE IMG XR PROCEDURES Final Result * XR Hip Right 2 or 3 Views (03/04/2017 12:00 AM CDT) Anatomical Region Laterality Modality Lower Extremities, Hip, Pelvis Right R adiographic Imaging 03/04/2017 Impressions 03/04/2017 7:59 AM CDT ??No acute finding. THIS IS AN ELECTRONICALLY VERIFIED REPORT 03/04/2017 7:56 AM: ??Patricia Diallo M.D. ?? Nicolas Dixon 07:56 AM 07:56 AM [facility] [EOD] Narrative 03/04/2017 7:59 AM CDT Right hip 2 views HISTORY: ??Fell in the shower this morning with pain FINDINGS: ??No comparison. The bones are intact. ??No focal osseous lesion. There is minimal spurring around the acetabulum. No soft tissue abnormality. Procedure Note Provider, MD Prabhjot - 02/07/2021 Right hip 2 views HISTORY: Fell in the shower this morning with pain FINDINGS: No comparison. The bones are intact. No focal osseous lesion. There is minimal spurring around the acetabulum. No soft tissue abnormality. IMPRESSION: No acute finding. THIS IS AN ELECTRONICALLY VERIFIED REPORT 03/04/2017 7:56 AM: Patricia Diallo M.D. Nicolas Dixon 07:56 AM 07:56 AM [facility] [EOD] Amara FUENTES IMG XR PROCEDURES Final Result * CT Cervical Spine WO Contrast (03/04/2017 12:00 AM CDT) Anatomical Region Laterality Modality Spine N/A Computed Tomogra phy 03/04/2017 Impressions 03/04/2017 8:21 AM CDT ?? 1. Reversal of the normal cervical lordosis. ??No evidence for an acute cervical spine fracture. Automated exposure control was used as a dose optimization technique for this examination. THIS IS AN ELECTRONICALLY VERIFIED REPORT 03/04/2017 8:18 AM: ??Kasi Bunn D.O. ?? Kasi Bunn D.O. :as 08:18 AM 08:18 AM [facility] [EOD] Narrative 03/04/2017 8:21 AM CDT EXAMINATION: ??CT cervical spine without contrast. HISTORY: Fell in shower this morning with pain. TECHNIQUE: ??Multiple 3 mm axial images of the cervical spine were obtained without contrast. ??Thin section axial, coronal, and sagittal reformatted images were performed at the CT workstation COMPARISON: ??None. FINDINGS: ??There is significant beam-hardening artifact from the patient's earrings which obscures portions of the craniovertebral junction. The included skull base is intact. ??There is no mastoid or middle ear fluid. ?? The craniovertebral junction and atlantoaxial relationships are maintained. ?? Mild reversal of cervical lordosis is present without evidence for fracture, subluxation, or facet dislocation. ??The prevertebral soft tissues are normal. ?? Cervicothoracic alignment is maintained. There is no aggressive appearing osteolytic or blastic lesion. Mild disc degeneration is present at C5-6 and C6-7. ??Evaluation of the spinal canal is limited by CT technique and body habitus. ??No high-grade spinal canal stenosis is observed, albeit limited. There is no paravertebral hematoma. ??Lung apices are clear. ??Incidental note is made of an azygos lobe with fissure. Procedure Note Provider, MD Prabhjot - 02/07/2021 EXAMINATION: CT cervical spine without contrast. HISTORY: Fell in shower this morning with pain. TECHNIQUE: Multiple 3 mm axial images of the cervical spine were obtained without contrast. Thin section axial, coronal, and sagittal reformatted images were performed at the CT workstation COMPARISON: None. FINDINGS: There is significant beam-hardening artifact from the patient's earrings which obscures portions of the craniovertebral junction. The included skull base is intact. There is no mastoid or middle earfluid. The craniovertebral junction and atlantoaxial relationships aremaintained. Mild reversal of cervical lordosis is present without evidence forfracture, subluxation, or facet dislocation. The prevertebral soft tissues arenormal. Cervicothoracic alignment is maintained. There is no aggressive appearing osteolytic or blastic lesion. Mild disc degeneration is present at C5-6 and C6-7. Evaluation of thespinal canal is limited by CT technique and body habitus. No high-grade spinalcanal stenosis is observed, albeit limited. There is no paravertebral hematoma. Lung apices are clear. Incidentalnote is made of an azygos lobe with fissure. IMPRESSION: 1. Reversal of the normal cervical lordosis. No evidence for an acute cervical spine fracture. Automated exposure control was used as a dose optimization technique forthis examination. THIS IS AN ELECTRONICALLY VERIFIED REPORT 03/04/2017 8:18 AM: Kasi Bunn D.O. Kasi Bunn D.O. :as 08:18 AM 08:18 AM [facility] [EOD] Amara FUENTES IMMichael CT PROCEDURES Final Result * XR Knee Left 1 or 2 Views (03/04/2017 12:00 AM CDT) Anatomical Region Laterality Modality Lower Extremities, Knee Left Radiogra phic Imaging 03/04/2017 Impressions 03/04/2017 8:00 AM CDT ??No acute osseous abnormality. THIS IS AN ELECTRONICALLY VERIFIED REPORT 03/04/2017 7:57 AM: ??Patricia Diallo M.D. ?? Patricia Diallo M.D. LC:reynaldo 07:57 AM 07:57 AM [facility] [EOD] Narrative 03/04/2017 8:00 AM CDT Left knee AP and lateral HISTORY: ??Fell in the shower this morning. ??Pain FINDINGS: ??No comparison. The bones are normal in appearance alignment. ??No acute osseous abnormality. ?? Minimal marginal spurring. ??No soft tissue abnormality. Procedure Note Provider, MD Prabhjot - 02/07/2021 Left knee AP and lateral HISTORY: Fell in the shower this morning. Pain FINDINGS: No comparison. The bones are normal in appearance alignment. No acute osseousabnormality. Minimal marginal spurring. No soft tissue abnormality. IMPRESSION: No acute osseous abnormality. THIS IS AN ELECTRONICALLY VERIFIED REPORT 03/04/2017 7:57 AM: Patricia Diallo M.D. Patricia Diallo M.D. LC:reynaldo 07:57 AM 07:57 AM [facility] [EOD] Amara FUENTES IMG XR PROCEDURES Final Result documented in this encounter Visit Diagnoses Diagnosis Strain of muscle, fascia and tendon at neck level, initial encounter Strain of muscle, fascia and tendon of lower back, initial encounter Contusion of right front wall of thorax Pain in left knee Fall in (into) shower or empty bathtub, initial encounter documented in this encounter Care Teams Social Services Assistant Relationship Specialty Start Date End Date Danial Murillo MD [address] [place] [address] PCP - General 01/05/15 04/18/22 documented as of this encounter
--- OUTSIDE RECORDS SUMMARY | 2024-09-19 04:57 | XMS_ITS | Encounter Summary ---
Author Organization [facility] Healthcare Address [address] [place] [address] Care Team Providers Care Transmission Calibration Engineer Name Role Phone Unavailable Primary Care Provider Unavailabl e Encounter Details Date Type Department Care Team (Late st Contact Info) Description 04/16/2008 1:24 PM CDT - 04/16/2008 4:49 PM CDT Hospital Encounter [facility] Noah Martinez MD [address] [place] [address] Toby Benton MD [address] [facility] [address] [place], [place] [id number] Social History Tobacco Use Types Packs/Day Years Used Date Smoking Tobacco: Never Assessed Comments Unknown Sex and Gender Information Value Date Recorded Sex Assigned at Not on file 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
--- OUTSIDE RECORDS SUMMARY | 2024-09-19 04:57 | XMS_ITS | Encounter Summary ---
Author Organization [facility] Healthcare Address [address] [place] [address] Care Team Providers Care Material Handler Floorperson Name Role Phone Unavailable Primary Care Provider Unavailabl e Encounter Details Date Type Department Care Team (Late st Contact Info) Description 09/17/2008 6:22 AM AUTO BODY CUSTOMIZER - 09/17/2008 11:59 PM AUTO BODY CUSTOMIZER Hospital Encounter [facility] Randall Menezes MD [address] [place] [id number] Social History Tobacco Use Types Packs/Day Years Used Date Smoking Tobacco: Never Assessed Comments Unknown Sex and Gender Information Value Date Recorded Sex Assigned at Not on file Legal Sex Female 10:30 AM AUTO BODY CUSTOMIZER Gender Identity Not on file Sexual Orientation Not on file documented as of this encounter Plan of Treatment Not on file documented as of this encounter Visit Diagnoses Not on filedocumented in this encounter
--- OUTSIDE RECORDS SUMMARY | 2024-09-19 04:57 | XMS_ITS | Encounter Summary ---
Author Organization [facility] Healthcare Address [address] [place] [address] Care Team Providers Care Mate Fishing Vessel Name Role Phone Unavailable Primary Care Provider Unavailabl e Encounter Details Date Type Department Care Team (Late st Contact Info) Description 10/07/2008 7:00 AM PHOTOSTAT OPERATOR HELPER - 10/07/2008 10:38 AM PHOTOSTAT OPERATOR HELPER Hospital Encounter [facility] Yovany, Tl Benton, Toby Lilly MD [address] [address] Dehydration; Other and unspecified noninfectious gastroenteritis and colitis; Hypopotassemia Social History Tobacco Use Types Packs/Day Years Used Date Smoking Tobacco: Never Assessed Comments Unknown Sex and Gender Information Value Date Recorded Sex Assigned at Not on file Legal Sex Female 10:30 AM 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
== END 2024-09-12 09:16 | disposition home or self-care (01) ==
PROVIDERS: Emergency Provider Emergency Medicine; PCP Nurse Practitioner Family
DX: S39.012A Strain of muscle, fascia and tendon of lower back, initial encounter (principal); E66.9 Obesity, unspecified; Z68.29 Body mass index [BMI] 29.0-29.9, adult; Z98.84 Bariatric surgery status; Z87.891 Personal history of nicotine dependence; Z79.899 Other long term (current) drug therapy; M47.816 Spondylosis without myelopathy or radiculopathy, lumbar region; W01.0XXA Fall on same level from slipping, tripping and stumbling without subsequent striking against object, initial encounter
CPT/HCPCS: 72100; 96372; 99283; J1885